=== PATIENT | male | born 1965 | race Caucasian/White ===

== ENCOUNTER 2018-06-01 06:26 | Inpatient (IN) ==
--- NOTE | 2018-06-01 06:48 | ED ---
HPI General Chief Complaint: Chest Pain Stated Complaint: medical Time Seen by Provider: 06/01/18 06:38 Source: patient, RN notes reviewed and old records reviewed Mode of arrival: other Limitations: no limitations History of Present Illness HPI narrative: 52-year-old man, history of sleep apnea and hypertension hyperlipidemia, presents to the emergency department brought over for same day surgery for tachyarrhythmia. Patient denies any history of arrhythmia. He was scheduled for a right total hip arthroplasty with Dr. Chambers this morning. He was feeling generally well. A little bit of back pain. In preop he was noted to have a heart rate elevated EKG showed abnormal tachyarrhythmia. He was sent to the emergency department. Patient denies any chest pain or trouble breathing. He otherwise had been feeling generally well and healthy. No other complaints. Complete Quality Measures for STEMI Alert Patients Related Data Home Medications Medication Instructions Recorded Confirmed hydrocodone-acetaminophen 1 tab PO Q8H PRN 05/18/18 06/01/18 lisinopril-hydrochlorothiazide 2 tab PO DAILY 05/18/18 06/01/18 Allergies Allergy/AdvReac Type Severity Reaction Status Date / Time No Known Allergies Allergy Verified 06/01/18 06:35 Review of Systems ROS Unobtainable All other systems reviewed negative except as stated in HPI ON LICENSE OF [facility] Medical History Medical History Dislocated hip (Acute) Arthritis (Acute) Hyperlipidemia (Acute) Hypertension (Acute) Obstructive sleep apnea on CPAP (Acute) Surgical History Surgical History Hx of umbilical hernia repair (Acute) Family History Family History Father Family history of acute myocardial infarction Social History Social History Substance History: No History of Abuse and Past History (5 years ago, MJ and cocaine and alcohol) Second Hand Smoke Exposure: No Smoking Status: Never smoker How Often Do You Have a Drink Containing Alcohol: 2 to 3 times a week Recent Travel in [place] within the Last 8 Weeks: No Recent Out of Country Travel within the Last 8 Weeks: No Immunization History Tetanus Immunization: >5 Years Hx Influenza Vaccine This Season: No Exam Narrative Exam Narrative: GENERAL: Well-appearing 51-year-old man, no acute distress. SKIN: Focused skin assessment warm/dry. Slightly pale appearing. HEAD: Atraumatic. Normocephalic. EYES: Pupils equal and round. No scleral icterus. No injection or drainage. ENT: No nasal bleeding or discharge. Mucous membranes pink and moist. NECK: Trachea midline. No JVD. CARDIOVASCULAR: Rapid regular heart rate. No murmurs. RESPIRATORY: No accessory muscle use. Clear to auscultation. Breath sounds equal bilaterally. GASTROINTESTINAL: Abdomen soft, non-tender, nondistended. Hepatic and splenic margins not palpable. MUSCULOSKELETAL: No obvious deformities. No clubbing. No cyanosis. No edema. NEUROLOGICAL: Awake and alert. No obvious cranial nerve deficits. Motor grossly within normal limits. Normal speech. PSYCHIATRIC: Appropriate mood and affect; insight and judgment normal. Course Reevaluation(s) Reevaluation #1: Attempted chemical cardioversion. Patient was given 6 mg of adenosine rapid IV push. Is slow the heart rate so that a flutter is clearly visible in the baseline. Patient remained in 2-1 block following attempt. Time: 06:29 Initial Documented Vital Signs Pulse Rate 158 H 06/01/18 06:28 Respiratory Rate 20 06/01/18 06:28 Blood Pressure 120/77 06/01/18 06:28 Pulse Oximetry 99 06/01/18 06:28 Last Documented Vital Signs Temperature 97.8 F 06/01/18 11:04 Pulse Rate 152 H 06/01/18 11:04 Respiratory Rate 18 06/01/18 11:04 Blood Pressure 106/74 06/01/18 11:04 Pulse Oximetry 99 06/01/18 11:04 Medical Decision Making [facility] Narrative Medical decision making narrative: 51-year-old man, new onset atrial flutter. Etiology is unclear. Patient states he does not drink regularly, did drink on Friday, but did not drink to excess. Takes lisinopril for his blood pressure. Is been taking it regularly. Has not abruptly stopped any medications. Patient is not especially symptomatic. Will treat with metoprolol, diltiazem still recorder. Likely admission. BUN and creatinine are little bit elevated, could signify dehydration most likely GI bleed. Patient denies any symptoms suggestive of GI bleed. I assume care of the patient at change of shift. Patient was scheduled to have surgery for his left hip and while it preop, he was noted to be with atrial flutter with RVR. Patient has no chest pain, chest pressure. The patient has been given 3 doses of IV Lopressor however still remains in rapid a flutter. He has been started on an esmolol drip. He has been admitted to the resident service. They will obtain a NIGHAT and the wishes that we can cardiovert him back into a normal sinus rhythm. There are consulting cardiology for the stat NIGHAT. Differential Diagnosis Differential Diagnosis: A flutter with RVR versus atrial fibrillation versus PSVT versus metabolic derangement Lab Data Lab results reviewed: Yes I reviewed the patient's lab results. Lab results narrative: Patient had labs sent on his other accounts, with preop, CBC is unremarkable. No significant anemia. Hemoglobin 11.9. Coags are unremarkable INR 1.1 BMP shows mildly elevated BUN and creatinine 38/1.88 Result diagrams: 06/01/18 10:31 Lab Results 06/01/18 Range/Units 06:30 Troponin I Less than 0.02 L (0.02-0.05) ng/mL Imaging Data Radiologist's impression: Chest X-Ray 06/01/18 06:39 CONCLUSION: No acute cardiopulmonary process. Chest X-Ray 06/01/18 10:19 CONCLUSION: Negative examination. Discharge Plan Discharge Disposition Patient Disposition: 30 Still Patient Discharge Details Diagnosis: Atrial flutter with rapid ventricular response, Degenerative joint disease of left hip, Chronic back pain Physicians Team ED Provider: Royce Subramanian Primary Care Provider: Christ Wilson Attending Provider: Ronak Lutz Other Providers: Daniel Diaz Discharge Interventions Interventions: Vital Signs Last Done: 06/01/18 07:32 Status ED Status: Admitted Patient
[2018-06-01] MEDS: Metoprolol Inj 5 MG/5 ML Vial IV.PUSH PRN ×3 (06:49→07:08)
--- NOTE | 2018-06-01 07:13 | XR ---
EXAM DATE: 06/01/2018 7:00 AM EDT AGE/SEX: 52 years / Male INDICATIONS: Chest pain. CLINICAL DATA: This is the patient's initial encounter. Patient reports that signs and symptoms have been present for 1 day and indicates a pain score of 1/10. MEDICAL/SURGICAL HISTORY: Hypertension. None. COMPARISON: [facility] [place], CHEST 2V PA&LAT, 05/15/2018. . FINDINGS: A single AP view of the chest demonstrates the lungs to be symmetrically aerated without evidence of mass, infiltrate or effusion. The cardiomediastinal contours are unremarkable. Osseous structures a re intact with degenerative changes. CONCLUSION: No acute cardiopulmonary process. Electronically signed by: Adriane Jung MD 06/01/2018 7:12 AM EDT
[2018-06-01] MEDS ORDERED: Esmolol Bolus Inj 100 MG/10 ML Vial IV.PUSH ONE (07:50)
[2018-06-01] MEDS: Esmolol 2,500 mg/250 mL Premix 2,500 MG/250 ML BAG IV.CONT PRN ×6 (08:13→22:50)
[2018-06-01] MEDS ORDERED: Ibuprofen 600 MG Tablet PO ONE (09:33)
[2018-06-01] MEDS ORDERED: MethylPREDNISolone Sod Succinate Inj 125 MG/2 ML Vial IV.PUSH ONE (10:18)
--- NOTE | 2018-06-01 10:18 | P.HPFP ---
History of Present Illness Primary Care Physician: Christ Wilson MD is PCP History of Present Illness: 52-year-old male, past medical history of hypertension, dislocated right hip, chronic back pain, presents from preop for incidentally discovered atrial flutter with RVR and elevated creatinine. The patient came in for surgery today and was told that he had an irregular heart beat. He was told that he cannot have surgery and was taken down to the ER. His preoperative EKG was normal 2 weeks ago (05/15), and he has never been told he has any arrythmias or heart problems. He denies any chest pains or palpitations. He has been SOB going up and down the stairs but he thought it was related to his broken hip. His shortness of breath has been going on for a long time, since he has been deconditioned from the broken hip. He denies any chest pain or palpitations. No new symptoms. 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), Denies chills, Denies fever(s), Denies night sweats Eyes: Denies blurry vision, Denies change in vision Ears, Nose, Mouth, and Throat: Denies abnormal hearing, Denies dizziness, Denies nasal obstruction, Denies pain with swallowing, Denies sinus pain, Denies sinus pressure Cardiovascular: Reports chest pain (last couple years - off and on chest pain, not related to activity), Reports shortness of breath with activity (up stairs with broken hip), Denies chest pain at rest, Denies chest pain with activity, Denies fainting Respiratory: Denies cough Gastrointestinal: Denies abdominal pain, Denies change in stools, Denies incontinent of stools Genitourinary: Denies blood in urine, Denies decreased urination Musculoskeletal: Reports back pain ("back goes out" 2x/ year, locked up this morning), Denies muscle weakness Skin/Breast: Denies bleeding lesions, Denies changing lesions, Denies dry skin Neurologic: Denies abnormal hearing, Denies abnormal movements, Denies headache( s) Psychiatric: Denies confusion, Denies memory loss, Denies mood swings PMFSH - History History Provided By: Patient - Medical History Medical History: Medical History (Last Updated 06/01/18 @ 10:16 by Vianey Escalante MD, R2) Dislocated hip Arthritis Hyperlipidemia Hypertension Obstructive sleep apnea on CPAP - Surgical History Surgical History: Surgical History (Last Reviewed 06/01/18 @ 10:16 by Vianey Escalante MD, R2) Hx of umbilical hernia repair - Family History Family History: Family History (Last Updated 06/01/18 @ 10:17 by Vianey Escalante MD, R2) Father Family history of acute myocardial infarction - Tobacco History Second Hand Smoke Exposure: No Tobacco Use In Past 30 Days: No Smoking Status: Never smoker - Alcohol History How Often Do You Have a Drink Containing Alcohol: 2 to 3 times a week - Substance Use History Substance History: No History of Abuse, Past History (5 years ago, MJ and cocaine and alcohol) - Travel History Recent Travel in the [facility] Within the Last 8 Weeks: No Recent Travel Out of the Country Within the Last 8 Weeks: No - Immunization History Tetanus Immunization: >5 Years Hx Influenza Vaccine This Season: No Medications and Allergies Active Medications: Active Medications Esmolol HCl (Brevibloc 2,500 Mg/Ns 250 Ml Premix) 2,500 mg in 250 mls @ 32.318 mls/hr IV.CONT TITRATE PRN; Protocol PRN Reason: Per Protocol Last Titration: 06/01/18 08:44 Dose: 150 mcg/kg/min, 96.95 mls/hr Sodium Chloride (Ns Flush) 2 ml IV.FLUSH UNSCH PRN PRN Reason: FLUSH AFTER USING IV ACCESS Last Admin: 06/01/18 07:09 Dose: 2 ml Allergies Allergy/AdvReac Type Severity Reaction Status Date / Time No Known Allergies Allergy Verified 06/01/18 06:35 Home Medications Medication Instructions Recorded Confirmed Type hydrocodone-acetaminophen 1 tab PO Q8H PRN 05/18/18 06/01/18 History lisinopril-hydrochlorothiazide 2 tab PO DAILY 05/18/18 06/01/18 History Exam Vital signs: Vital Signs 06/01/18 06:28 06/01/18 06:32 06/01/18 06:43 Temperature 99.2 F Pulse Rate 158 H 152 H Respiratory Rate 20 Blood Pressure 120/77 Pulse Oximetry 99 06/01/18 06:44 06/01/18 06:45 06/01/18 06:58 Temperature Pulse Rate 154 H Respiratory Rate 20 Blood Pressure 120/87 Pulse Oximetry 99 98 99 06/01/18 07:05 06/01/18 07:32 06/01/18 09:00 Temperature 97.8 F 97.8 F 97.8 F Pulse Rate 153 H 151 H 150 H Respiratory Rate 18 18 18 Blood Pressure 116/84 120/85 105/74 Pulse Oximetry 99 100 99 06/01/18 09:40 Temperature 97.8 F Pulse Rate 151 H Respiratory Rate 20 Blood Pressure 102/65 Pulse Oximetry 99 Intake & Output 05/31/18 06/01/18 06/01/18 18:59 06:59 18:59 Weight 107.726 kg - Constitutional no acute distress, average body habitus - Routine Chest/Breast/Axilla Exam Chest wall: Absent: tenderness - Routine Respiratory Exam Present: CTA bilaterally. Absent: accessory muscle use, decreased breath sounds , respiratory distress - Routine Cardiovascular Exam Present: RRR, S1, S2. Absent: murmur - Routine Abdominal Exam Present: soft, normoactive bowel sounds - Routine Extremities Exam Absent: cyanosis, clubbing - Routine Skin Exam Present: intact - Routine Neurological Exam Present: alert, oriented X3 Results - Labs Result diagrams: 06/01/18 12:45 06/01/18 10:31 Abnormal lab results 06/01/18 Range/Units 06:30 Troponin I Less than 0.02 L (0.02-0.05) ng/mL Cardiac Enzymes 06/01/18 Range/Units 06:30 Troponin I Less than 0.02 L (0.02-0.05) ng/mL - Imaging Impressions Chest X-Ray 06/01/18 06:39 CONCLUSION: No acute cardiopulmonary process. Caprini VTE Risk Assessment Caprini VTE Risk Assessment: No/Low Risk (score <= 1) Caprini Risk Assessment Model: Point Value = 1 Point Value = 2 Point Value = 3 Point Value = 5 Age 41-60 Minor surgery BMI > 25 kg/m2 Swollen legs Varicose veins or History of unexplained or recurrent spontaneous Oral contraceptives or hormone replacement Sepsis (< 1 month) Serious lung disease, including pneumonia (< 1 month) Abnormal pulmonary function Acute myocardial infarction Congestive heart failure (< 1 month) History of inflammatory bowel disease Medical patient at bed rest Age 61-74 Arthroscopic surgery Major open surgery (> 45 min) Laparoscopic surgery (> 45 min) Malignancy Confined to bed (> 72 hours) Immobilizing plaster cast Central venous access Age >= 75 History of VTE Family history of VTE Factor V Leiden Prothrombin [id number] Lupus anticoagulant Anticardiolipin antibodies Elevated serum homocysteine Heparin-induced thrombocytopenia Other congenital or acquired thrombophilia Stroke (< 1 month) Elective arthroplasty Hip, pelvis, or leg fracture Acute spinal cord injury (< 1 month) Prophylaxis Regimen: Total Risk Factor Score Risk Level Prophylaxis Regimen 0-1 Low Early ambulation 2 Moderate Order ONE of the following: *Sequential Compression Device (SCD) *Heparin 5000 units SQ BID 3-4 Higher Order ONE of the following medications: *Heparin 5000 units SQ TID *Enoxaparin/Lovenox 40 mg SQ daily (WT < 150 kg, CrCl > 30 mL/min) *Enoxaparin/Lovenox 30 mg SQ daily (WT < 150 kg, CrCl > 10-29 mL/min) *Enoxaparin/Lovenox 30 mg SQ BID (WT < 150 kg, CrCl > 30 mL/min) AND/OR *Sequential Compression Device (SCD) 5 or more Highest Order ONE of the following medications: *Heparin 5000 units SQ TID (Preferred with Epidurals) *Enoxaparin/Lovenox 40 mg SQ daily (WT < 150 kg, CrCl > 30 mL/min) *Enoxaparin/Lovenox 30 mg SQ daily (WT < 150 kg, CrCl > 10-29 mL/min) *Enoxaparin/Lovenox 30 mg SQ BID (WT < 150 kg, CrCl > 30 mL/min) AND *Sequential Compression Device (SCD) Assessment and Plan - Assessment (1) Atrial flutter with rapid ventricular response Code(s): I48.92 - Unspecified atrial flutter Status: Acute Plan: Paroxysmal atrial flutter, new since preoperative EKG 2 months ago. Hemodynamically stable, asymptomatic Continued heart rate at 150 bpm status post Lopressor, esmolol drip, amiodarone bolus and drip Follow-up recommendations per cardiology Continue IV amiodarone and esmolol for now Follow-up echo, will add aspirin if echo is normal (2) Elevated serum creatinine Code(s): R79.89 - Other specified abnormal findings of blood chemistry Status : Acute Plan: Creatinine 1.88 on admission, improved to 1.66 after hydration May be due to dehydration versus reduced perfusion from arrhythmia Avoid NSAIDs, continue with IV hydration Follow-up CMP in a.m. (3) Hypertension Code(s): I10 - Essential (primary) hypertension Status: Acute Plan: Borderline low blood pressures Avoid narcotics for now, caution with antihypertensive agents Follow-up recommendations of cardiology (4) Degenerative joint disease of left hip Code(s): M16.12 - Unilateral primary osteoarthritis, left hip Status: Acute Plan: Was scheduled for surgery with orthopedic surgery today We will have to reevaluate as outpatient (5) Chronic back pain Code(s): M54.9 - Dorsalgia, unspecified; G89.29 - Other chronic pain Status: Acute Plan: Avoiding opiates due to borderline low blood pressures Will add Tylenol IV as needed overnight if any calls for pain (6) Symptoms concerning nutrition, metabolism, and development Code(s): R63.8 - Other symptoms and signs concerning food and fluid intake Status: Acute Plan: Fluids: IV fluids at maintenance due to dehydration, regular p.o. diet Electrolytes: CMP normal, follow-up in a.m. Nutrition: Regular diet (7) DVT prophylaxis Status: Acute Plan: Heparin 5000 units 3 times daily, may need to be anticoagulated long-term due to a flutter, not anticipating cardioversion per cardiology - Assessment and Plan 52-year-old male, past medical history of hypertension, dislocated right hip, chronic back pain, presents from preop for incidentally discovered atrial flutter with RVR and elevated creatinine. Discharge Planning: Discharge pending recommendations of cardiology (4) Degenerative joint disease of left hip Qualifiers: Osteoarthritis type: primary Qualified Code(s): M16.12 - Unilateral primary osteoarthritis, left hip (5) Chronic back pain Qualifiers: Back pain location: low back pain Back pain laterality: unspecified Sciatica presence: unspecified whether sciatica present Qualified Code(s): M54.5 - Low back pain; G89.29 - Other chronic pain
[2018-06-01] MEDS ORDERED: Bisacodyl 10 MG Supp RECTAL PRN (10:27)
[2018-06-01] MEDS ORDERED: Temazepam 15 MG Capsule PO PRN (10:27)
[2018-06-01] MEDS ORDERED: Morphine Inj 4 MG/ML Vial IV.PUSH ONE (10:54)
--- NOTE | 2018-06-01 10:58 | XR ---
EXAM DATE: 06/01/2018 10:45 AM EDT AGE/SEX: 52 years / Male INDICATIONS: Rapid heart rate and shortness of breath when checking in for hip replacement surgery t umu CLINICAL DATA: This is the patient's initial encounter. Patient reports that signs and symptoms have been present for 1 day and indicates a pain score of 0/10. MEDICAL/SURGICAL HISTORY: . low back pain, hip pain None. COMPARISON: [facility] [place], CHEST 1V SINGLE AP, 06/01/2018. . FINDINGS: A single AP view of the chest demonstrates the lungs to be symmetrically aerated without evidence of mass, infiltrate or effusion. The cardiomediastinal contours are unremarkable. Osseous structures a re intact. CONCLUSION: Negative examination. Electronically signed by: Gregory Lee MD 06/01/2018 10:57 AM EDT
[2018-06-01] MEDS ORDERED: Amiodarone Inj 150 MG in Dextrose 5% in Water Inj 97 ML IV.SIG ONE ×4 (11:23→19:58)
[2018-06-01 11:29] LABS: Activated Partial Thrombo Time 26.8 sec (24.3-30.1); INR 1.1 Ratio; Prothrombin Time 10.9 sec (9.8-11.6)
[2018-06-01 11:35] LABS: Albumin 3.8 g/dL (3.4-5.0); Anion Gap 6 meq/L (5-15); Aspartate Aminotransferase 10 U/L (15-37); Blood Urea Nitrogen 33 mg/dL (7-18); Calcium 8.3 mg/dL (8.5-10.1); Carbon Dioxide 26.9 meq/L (21.0-32.0); Chloride 108 meq/L (98-107); Glomerular Filtration Rate 44 mL/min (>89); Glucose,Random 115 mg/dL (74-106); Magnesium 2.3 mg/dL (1.5-2.5); Potassium 4.5 meq/L (3.5-5.1); Sodium 141 meq/L (136-145)
[2018-06-01 11:40] LABS: Alanine Aminotransferase 21 U/L (12-78); Alkaline Phosphatase 68 U/L (45-117); Creatine Kinase 125 U/L (39-308); Total Protein 7.1 g/dL (6.4-8.2)
[2018-06-01 11:52] LABS: Creatine Kinase MB 1.4 ng/mL (0.5-3.6)
[2018-06-01] MEDS: Sod Chloride 0.9% Inj 1,000 ML IV.CONT SCH ×3 (12:34→19:32)
[2018-06-01] MEDS: Heparin - SQ 10,000 UNITS/ML Vial SQ SCH ×2 (12:36→19:32)
[2018-06-01 13:01] LABS: Baso % (Auto) 0.6 % (0.0-2.0); Eos # (Auto) 0.1 th/mm3 (0.0-0.4); Eos % (Auto) 0.7 % (0.0-4.0); Hematocrit 32.5 % (39.0-51.0); Hemoglobin 11.2 gm/dL (13.0-17.0); Lymph # (Auto) 1.7 th/mm3 (1.0-4.8); Lymph % (Auto) 23.2 % (9.0-44.0); Mean Corpuscular HGB Conc 34.5 % (32.0-36.0); Mean Corpuscular Hemoglobin 28.9 pg (27.0-34.0); Mean Corpuscular Volume 83.7 fL (80.0-100.0); Mean Platelet Volume 9.7 fL (7.0-11.0); Mono # (Auto) 0.5 th/mm3 (0.0-0.9); Mono % (Auto) 6.2 % (0.0-8.0); Neut # (Auto) 5.1 th/mm3 (1.8-7.7); Neut % (Auto) 69.3 % (16.0-70.0); Platelet Count 210 th/mm3 (150-450); Red Blood Count 3.88 mil/mm3 (4.50-5.90); Red Cell Distribution Width 14.8 % (11.6-17.2); White Blood Count 7.3 th/mm3 (4.0-11.0)
[2018-06-01 13:30] LABS: Bilirubin,Urine Negative (Negative); Clarity,Urine Clear (Clear); Color,Urine Yellow (Yellw/Straw); Glucose,Urine (UA) 50 mg/dL (Negative); Hyaline Casts,Urine 16 /lpf (0-3); Leukocyte Esterase,Urine Negative (Negative); Nitrite,Urine Negative (Negative); Specific Gravity,Urine 1.016 (1.002-1.035)
--- NOTE | 2018-06-01 16:20 | MB ---
cc: Daniel Diaz MD DATE: 05/25/2018 REASON FOR CONSULTATION: Atrial flutter. HISTORY OF PRESENT ILLNESS: The patient is a 52-year-old white male with a history of recently diagnosed hypertension, history of sleep apnea and hyperlipidemia, who was to undergo right total hip arthroplasty today when preoperative EKG showed atrial flutter. The patient denies palpitations, dizziness, syncope, near-syncope, chest pain, shortness of breath, pedal edema, paroxysmal nocturnal dyspnea. He has had some troubles with his CPAP mask and has been wearing it suboptimally with a loose mask recently. PAST MEDICAL HISTORY: 1. Hypertension. 2. Hyperlipidemia. 3. Sleep apnea. CARDIAC MEDICATIONS AT HOME: Lisinopril HCT unknown dose 2 daily. MEDICATIONS HERE IN THE HOSPITAL: Amiodarone drip, esmolol drip, heparin 5000 units subcutaneously q. 8 hours. ALLERGIES: NO KNOWN DRUG ALLERGIES. FAMILY HISTORY: The patient's father fairly suddenly at age 62 of unclear cause, possibly myocardial infarction. SOCIAL HISTORY: The patient denies any history of alcohol or tobacco abuse. REVIEW OF SYSTEMS: As in the History Of Present Illness, otherwise negative or noncontributory. He also denies headache, abdominal pain, melena, dyspepsia, bright red blood per rectum. PHYSICAL EXAMINATION: VITAL SIGNS: Blood pressure 102/69 with a pulse of 149, respirations 16. GENERAL: He is a well-developed, well-nourished white male, in no acute distress. HEENT/NECK: Jugular venous pressure is normal. Carotid pulses are 2+ bilaterally and without bruits. CHEST: Clear lungs lance. CARDIAC: He has a tachycardic, regular rhythm without S3, S4, or murmur. ABDOMEN: He has a soft, obese, nontender abdomen. Bowel sounds are present. There is no definite hepatosplenomegaly. EXTREMITIES: Reveals no clubbing, cyanosis or edema. EKG shows atrial flutter, 2:1 AV conduction, nonspecific T-wave abnormalities. Chest x-ray shows no acute disease. LABORATORY DATA: WBC 7.3, hemoglobin 11.2, platelets 210. Potassium 4.5, BUN 33, creatinine 1.66. Negative cardiac enzymes. AST 10, ALT 21. IMPRESSION: Paroxysmal atrial flutter in this 52-year-old white male with a history of hypertension, hyperlipidemia, sleep apnea. At this time, he remains in atrial flutter with 2:1 atrioventricular conduction with heart rate of approximately 150 beats per minute. There is no evidence for acute coronary syndrome or congestive heart failure. He is completely asymptomatic with the arrhythmia, the chronicity of which is not clear. He apparently did have a preoperative electrocardiogram maybe 2 months ago which was normal. He remains normotensive. RECOMMENDATIONS: 1. Continue intravenous amiodarone and intravenous esmolol for now. 2. Check 2-D echo to assess his left ventricular function. 3. Providing his left ventricular function is normal, his thromboembolic risk is overall low and recommend daily aspirin. MD MYRIAM Paredes/CESIA , 03:44 PM , 03:54 PM DAVID
--- NOTE | 2018-06-01 21:38 | ECG ---
Date Performed: 06/01/2018 Time Performed: 10:46:41 PTAGE: 52 years EKG: ATRIAL FLUTTER/TACHYCARDIA WITH RAPID VENTRICULAR RESPONSE MODERATE ST DEPRESSION ABNORMAL ECG PREVIOUS TRACING : 06/01/2018 05.45 Since the previous tracing, no significant change noted DOCTOR: Sukumar Nicholson Interpretating Date/Time 06/01/2018 21:36:14
--- NOTE | 2018-06-01 21:54 | ECG ---
Date Performed: 06/01/2018 Time Performed: 05:45:18 PTAGE: 52 years EKG: Atrial flutter with uncontrolled ventricular response with 2:1 A-V block Extensive ST-T rudy nges may be due to myocardial ischemia Abnormal ECG NO PREVIOUS TRACING DOCTOR: Sukumar Nicholson Interpretating Date/Time 06/01/2018 21:53:28
[2018-06-01] MEDS ORDERED: Digoxin Inj 500 MCG/2 ML Ampul IV.PUSH ONE (23:30)
[2018-06-02] MEDS: Esmolol 2,500 mg/250 mL Premix 2,500 MG/250 ML BAG IV.CONT PRN ×7 (03:06→23:05)
[2018-06-02] MEDS: Sod Chloride 0.9% Inj 1,000 ML IV.CONT SCH ×4 (03:06→20:41)
[2018-06-02] MEDS: Heparin - SQ 10,000 UNITS/ML Vial SQ SCH ×2 (04:22→12:32)
[2018-06-02 06:31] LABS: Hematocrit 33.3 % (39.0-51.0); Hemoglobin 11.4 gm/dL (13.0-17.0); Lymph # (Auto) 1.1 th/mm3 (1.0-4.8); Lymph % (Auto) 11.7 % (9.0-44.0); Mean Corpuscular HGB Conc 34.1 % (32.0-36.0); Mean Corpuscular Hemoglobin 28.8 pg (27.0-34.0); Mean Corpuscular Volume 84.4 fL (80.0-100.0); Mean Platelet Volume 9.9 fL (7.0-11.0); Mono # (Auto) 0.5 th/mm3 (0.0-0.9); Mono % (Auto) 5.7 % (0.0-8.0); Neut # (Auto) 7.4 th/mm3 (1.8-7.7); Neut % (Auto) 82.6 % (16.0-70.0); Platelet Count 192 th/mm3 (150-450); Red Blood Count 3.94 mil/mm3 (4.50-5.90); Red Cell Distribution Width 14.9 % (11.6-17.2)
[2018-06-02 06:43] LABS: INR 1.1 Ratio; Prothrombin Time 11.4 sec (9.8-11.6)
[2018-06-02 06:53] LABS: Albumin 3.4 g/dL (3.4-5.0); Anion Gap 7 meq/L (5-15); Aspartate Aminotransferase 10 U/L (15-37); Blood Urea Nitrogen 25 mg/dL (7-18); Calcium 8.4 mg/dL (8.5-10.1); Carbon Dioxide 23.7 meq/L (21.0-32.0); Chloride 109 meq/L (98-107); Glomerular Filtration Rate 50 mL/min (>89); Glucose,Random 153 mg/dL (74-106); Potassium 4.4 meq/L (3.5-5.1); Sodium 140 meq/L (136-145)
[2018-06-02 06:56] LABS: Alanine Aminotransferase 19 U/L (12-78); Alkaline Phosphatase 58 U/L (45-117); Total Protein 6.4 g/dL (6.4-8.2)
--- NOTE | 2018-06-02 07:46 | P.PNCA ---
Subjective Interval history: Denies palpitations, dizziness, CP, dyspnea. Physical Exam Vital signs: Vital Signs 06/01/18 09:00 06/01/18 09:40 06/01/18 10:00 Temperature 97.8 F 97.8 F 97.9 F Pulse Rate 150 H 151 H 148 H Respiratory Rate 18 20 18 Blood Pressure 105/74 102/65 111/68 Pulse Oximetry 99 99 99 06/01/18 10:08 06/01/18 10:19 06/01/18 10:27 Temperature Pulse Rate Respiratory Rate 18 Blood Pressure Pulse Oximetry 99 99 06/01/18 11:04 06/01/18 12:40 06/01/18 13:00 Temperature 97.8 F 97.8 F 97.9 F Pulse Rate 152 H 149 H 150 H Respiratory Rate 18 16 18 Blood Pressure 106/74 102/69 116/83 Pulse Oximetry 99 99 06/01/18 14:00 06/01/18 15:10 06/01/18 16:20 Temperature 97.7 F 97.9 F 97.7 F Pulse Rate 149 H 146 H 142 H Respiratory Rate 17 18 18 Blood Pressure 106/81 95/60 L 99/58 L Pulse Oximetry 99 99 99 06/01/18 16:30 06/01/18 18:00 06/01/18 20:00 Temperature 98.1 F 98.7 F Pulse Rate 144 H 143 H 142 H Respiratory Rate 19 22 Blood Pressure 101/61 128/84 Pulse Oximetry 98 98 06/01/18 20:48 06/01/18 22:00 06/01/18 22:05 Temperature Pulse Rate 142 H Respiratory Rate 24 18 Blood Pressure Pulse Oximetry 06/02/18 00:00 06/02/18 00:31 06/02/18 02:00 Temperature 98.2 F Pulse Rate 122 H 122 H Respiratory Rate 20 Blood Pressure 127/61 Pulse Oximetry 95 98 06/02/18 02:19 06/02/18 04:00 06/02/18 04:21 Temperature 98.7 F Pulse Rate 122 H Respiratory Rate 12 Blood Pressure 113/68 Pulse Oximetry 97 100 99 06/02/18 06:00 Temperature Pulse Rate 138 H Respiratory Rate Blood Pressure Pulse Oximetry Intake & Output 06/01/18 06/02/18 06/02/18 18:59 06:59 18:59 Intake Total 850 / 850 3370 / 3370 Output Total 400 / 400 1600 / 1600 Balance 450 / 450 1770 / 1770 Weight 113 kg Intake: IV 850 / 850 3250 / 3250 Cordarone Inj 450 MG In D5W Inj 250 / 250 241 ML @ 1 MG/MIN 33.33 mls/hr IV.CONT TITRATE PRN Rx#: [id number] Brevibloc 2,500 mg/NS 250 mL 750 / 750 1000 / 1000 Premix 2,500 mg In 250 ml @ 50 MCG/KG/MIN 32.318 mls/hr IV. CONT TITRATE PRN Rx#:[id number] NS Inj 1,000 ML @ 150 mls/hr IV 1999 / 1999 .CONT .Q6H40M YVES Rx#:[id number] Cordarone Inj 150 MG In D5W Inj 100 / 100 97 ML @ 600 mls/hr IV.SIG ONCE ONE Rx#:[id number] Oral 0 / 0 120 / 120 Output: Urine 400 / 400 1600 / 1600 Other: # Voids 1 # Bowel Movements 0 - Constitutional no acute distress - Routine Neck Exam Absent: JVD - Routine Respiratory Exam Present: CTA bilaterally - Routine Cardiovascular Exam Present: S1, S2, tachycardia. Absent: murmur, gallop - Routine Abdominal Exam Present: soft, normoactive bowel sounds. Absent: tenderness, organomegaly - Routine Extremities Exam Absent: cyanosis, clubbing, edema Assessment and Plan - Assessment (1) Paroxysmal atrial flutter Code(s): I48.92 - Unspecified atrial flutter Status: Acute Plan: Remains in atrial flutter, HR's minimally better. Patient completely asymptomatic. REC additional IV dig, IV Amiodarone boluses this morning, if remains in atrial flutter and echo completely normal, to consider cardioversion late today or in am (2) Hypertension Code(s): I10 - Essential (primary) hypertension Status: Chronic Plan: Stable. Normotensive. - Plan Code Status: full code Discussed Condition With: patient (2) Hypertension Qualifiers: Hypertension type: essential hypertension Qualified Code(s): I10 - Essential (primary) hypertension
[2018-06-02] MEDS ORDERED: Digoxin Inj 500 MCG/2 ML Ampul IV.PUSH ONE (09:15)
[2018-06-02] MEDS ORDERED: Amiodarone Inj 150 MG in Dextrose 5% in Water Inj 97 ML IV.SIG ONE ×2 (10:00)
--- NOTE | 2018-06-02 15:04 | P.PNFP ---
Subjective Interval history: Patient seen and examined this morning bedside. Patient denies any current chest pain or difficulty breathing. He continues to have no symptoms from his irregular heart rate. No acute events overnight. No fever/chills. No dizziness. <Vianey Escalante - 06/02/18 15:04> Results - Labs Result diagrams: 06/02/18 05:43 06/02/18 05:43 <Ronak Lutz - 06/03/18 08:30> Abnormal lab results 06/01/18 06/02/18 06/02/18 Range/Units 20:16 05:43 05:43 RBC 3.94 L (4.50-5.90) mil/mm3 Hgb 11.4 L (13.0-17.0) gm/dL Hct 33.3 L (39.0-51.0) % Neut % (Auto) 82.6 H (16.0-70.0) % Chloride (98-107) meq/L BUN (7-18) mg/dL Creatinine (0.60-1.30) mg/dL Estimated GFR (>89) mL/min Random Glucose (74-106) mg/dL Calcium (8.5-10.1) mg/dL AST (15-37) U/L Troponin I Less than 0.02 L (0.02-0.05) ng/mL B-Natriuretic Peptide 214 H (0-100) pg/mL 06/02/18 Range/Units 05:43 RBC (4.50-5.90) mil/mm3 Hgb (13.0-17.0) gm/dL Hct (39.0-51.0) % Neut % (Auto) (16.0-70.0) % Chloride 109 H (98-107) meq/L BUN 25 H (7-18) mg/dL Creatinine 1.47 H (0.60-1.30) mg/dL Estimated GFR 50 L (>89) mL/min Random Glucose 153 H (74-106) mg/dL Calcium 8.4 L (8.5-10.1) mg/dL AST 10 L (15-37) U/L Troponin I (0.02-0.05) ng/mL B-Natriuretic Peptide (0-100) pg/mL Short CBC 06/02/18 Range/Units 05:43 WBC 9.0 (4.0-11.0) th/mm3 Hgb 11.4 L (13.0-17.0) gm/dL Hct 33.3 L (39.0-51.0) % Plt Count 192 (150-450) th/mm3 BMP 06/02/18 05:43 Sodium 140 Potassium 4.4 Chloride 109 H Carbon Dioxide 23.7 BUN 25 H Creatinine 1.47 H Calcium 8.4 L Cardiac Enzymes 06/01/18 Range/Units 20:16 Troponin I Less than 0.02 L (0.02-0.05) ng/mL Liver Function 06/02/18 Range/Units 05:43 Total Bilirubin 0.3 (0.2-1.0) mg/dL AST 10 L (15-37) U/L ALT 19 (12-78) U/L Alkaline Phosphatase 58 (45-117) U/L Albumin 3.4 (3.4-5.0) g/dL <Vianey Escalante - 06/02/18 15:04> Physical Exam Vital signs: Vital Signs 06/02/18 10:00 06/02/18 12:00 06/02/18 12:32 Temperature 98.5 F Pulse Rate 139 H 138 H Respiratory Rate 20 20 Blood Pressure 147/70 H Pulse Oximetry 97 06/02/18 14:00 06/02/18 14:24 06/02/18 16:00 Temperature 98.5 F Pulse Rate 140 H 141 H Respiratory Rate 16 20 Blood Pressure 132/82 Pulse Oximetry 98 06/02/18 18:00 06/02/18 20:00 06/02/18 22:00 Temperature 98.6 F Pulse Rate 141 H 140 H 142 H Respiratory Rate 27 H Blood Pressure 131/65 Pulse Oximetry 96 06/02/18 23:05 06/03/18 00:00 06/03/18 02:00 Temperature 98.8 F Pulse Rate 140 H 112 H Respiratory Rate 14 Blood Pressure 126/61 Pulse Oximetry 99 97 06/03/18 04:00 06/03/18 04:34 06/03/18 06:00 Temperature 97.8 F Pulse Rate 140 H 124 H Respiratory Rate 18 Blood Pressure 146/65 H Pulse Oximetry 97 98 Intake & Output 06/02/18 06/03/18 06/03/18 18:59 06:59 18:59 Intake Total 2510 / 2510 1275 / 1275 Output Total 1050 / 1050 1075 / 1075 Balance 1460 / 1460 200 / 200 Weight 117.3 kg Intake: IV 1950 / 1950 1225 / 1225 Cordarone Inj 450 MG In D5W Inj 240 / 240 241 ML @ 1 MG/MIN 33.33 mls/hr IV.CONT TITRATE PRN Rx#: [id number] Brevibloc 2,500 mg/NS 250 mL 750 / 750 985 / 985 Premix 2,500 mg In 250 ml @ 50 MCG/KG/MIN 32.318 mls/hr IV. CONT TITRATE PRN Rx#:[id number] NS Inj 1,000 ML @ 150 mls/hr IV 1000 / 1000 .CONT .Q6H40M YVES Rx#:[id number] Cordarone Inj 150 MG In D5W Inj 100 / 100 97 ML @ 600 mls/hr IV.SIG ONCE ONE Rx#:[id number] Oral 560 / 560 50 / 50 Output: Urine 1050 / 1050 1075 / 1075 Other: # Bowel Movements 0 <Ronak Lutz - 06/03/18 08:30> Vital Signs 06/01/18 15:10 06/01/18 16:20 06/01/18 16:30 Temperature 97.9 F 97.7 F 98.1 F Pulse Rate 146 H 142 H 144 H Respiratory Rate 18 18 19 Blood Pressure 95/60 L 99/58 L 101/61 Pulse Oximetry 99 99 98 06/01/18 18:00 06/01/18 20:00 06/01/18 20:48 Temperature 98.7 F Pulse Rate 143 H 142 H Respiratory Rate 22 24 Blood Pressure 128/84 Pulse Oximetry 98 06/01/18 22:00 06/01/18 22:05 06/02/18 00:00 Temperature 98.2 F Pulse Rate 142 H 122 H Respiratory Rate 18 20 Blood Pressure 127/61 Pulse Oximetry 95 06/02/18 00:31 06/02/18 02:00 06/02/18 02:19 Temperature Pulse Rate 122 H Respiratory Rate Blood Pressure Pulse Oximetry 98 97 06/02/18 04:00 06/02/18 04:21 06/02/18 06:00 Temperature 98.7 F Pulse Rate 122 H 138 H Respiratory Rate 12 Blood Pressure 113/68 Pulse Oximetry 100 99 06/02/18 08:00 06/02/18 10:00 06/02/18 12:00 Temperature 98.7 F 98.5 F Pulse Rate 138 H 139 H 138 H Respiratory Rate 18 20 Blood Pressure 118/70 147/70 H Pulse Oximetry 97 97 06/02/18 12:32 06/02/18 14:00 06/02/18 14:24 Temperature Pulse Rate 140 H Respiratory Rate 20 16 Blood Pressure Pulse Oximetry Intake & Output 06/01/18 06/02/18 06/02/18 18:59 06:59 18:59 Intake Total 850 / 850 3620 / 3620 1949 / 1949 Output Total 400 / 400 1600 / 1600 325 / 325 Balance 450 / 450 2019 / 2019 1625 / 1625 Weight 113 kg Intake: IV 850 / 850 3500 / 3500 1949 / 1950 Cordarone Inj 450 MG In D5W Inj 500 / 500 241 ML @ 1 MG/MIN 33.33 mls/hr IV.CONT TITRATE PRN Rx#: [id number] Brevibloc 2,500 mg/NS 250 mL 750 / 750 1000 / 1000 750 / 750 Premix 2,500 mg In 250 ml @ 50 MCG/KG/MIN 32.318 mls/hr IV. CONT TITRATE PRN Rx#:[id number] NS Inj 1,000 ML @ 150 mls/hr IV 1999 / 1999 1000 / 1000 .CONT .Q6H40M YVES Rx#:[id number] Cordarone Inj 150 MG In D5W Inj 100 / 100 100 / 100 97 ML @ 600 mls/hr IV.SIG ONCE ONE Rx#:[id number] Oral 0 / 0 120 / 120 Output: Urine 400 / 400 1600 / 1600 325 / 325 Other: # Voids 1 # Bowel Movements 0 <Mcinnes,Vianey - 06/02/18 15:04> - Constitutional no acute distress <Mcinnes,Vianey - 06/02/18 15:04> - Routine Respiratory Exam Present: CTA bilaterally. Absent: accessory muscle use, decreased breath sounds <Mcinnes,Vianey - 06/02/18 15:04> - Routine Cardiovascular Exam Present: S1, S2, irregularly irregular <Mcinnes,Vianey - 06/02/18 15:04> - Routine Abdominal Exam Present: soft, normoactive bowel sounds. Absent: tenderness <Mcinnes,Vianey - 06/02/18 15:04> - Routine Extremities Exam Absent: cyanosis, clubbing, edema <Vianey Escalante - 06/02/18 15:04> - Routine Neurological Exam Present: alert, oriented X3 <Vianey Escalante - 06/02/18 15:04> Assessment and Plan - Assessment (1) Atrial flutter with rapid ventricular response Code(s): I48.92 - Unspecified atrial flutter Status: Acute (2) Elevated serum creatinine Code(s): R79.89 - Other specified abnormal findings of blood chemistry Status : Acute (3) Hypertension Code(s): I10 - Essential (primary) hypertension Status: Chronic (4) Degenerative joint disease of left hip Code(s): M16.12 - Unilateral primary osteoarthritis, left hip Status: Acute (5) Chronic back pain Code(s): M54.9 - Dorsalgia, unspecified; G89.29 - Other chronic pain Status: Acute (6) Symptoms concerning nutrition, metabolism, and development Code(s): R63.8 - Other symptoms and signs concerning food and fluid intake Status: Acute (7) DVT prophylaxis Status: Acute <Ronak Lutz - 06/03/18 08:30> (1) Atrial flutter with rapid ventricular response Code(s): I48.92 - Unspecified atrial flutter Status: Acute Plan: Paroxysmal atrial flutter, new since preoperative EKG 2 months ago. Hemodynamically stable, asymptomatic Heart rates have minimally improved over the last 24 hours, cardiology following ; added additional IV digoxin, IV amiodarone boluses this morning, will consider cardioversion later today or tomorrow Follow-up recommendations per cardiology Continue IV amiodarone and esmolol for now Follow-up echo, cardiology added aspirin (2) Elevated serum creatinine Code(s): R79.89 - Other specified abnormal findings of blood chemistry Status : Acute Plan: Creatinine 1.88 on admission, improved to 1.47 today May be due to dehydration versus reduced perfusion from arrhythmia Avoid NSAIDs, continue with IV hydration Follow-up CMP in a.m. (3) Hypertension Code(s): I10 - Essential (primary) hypertension Status: Chronic Plan: Borderline low blood pressures since admission, blood pressure today 147/70 Continue home narcotics for pain management, caution with antihypertensive agents Follow-up recommendations of cardiology (4) Degenerative joint disease of left hip Code(s): M16.12 - Unilateral primary osteoarthritis, left hip Status: Acute Plan: Was scheduled for surgery with orthopedic surgery on 06/01 We will have to reevaluate as outpatient (5) Chronic back pain Code(s): M54.9 - Dorsalgia, unspecified; G89.29 - Other chronic pain Status: Acute Plan: Continue home [place] 10 every 8 hours as needed Will add Tylenol IV as needed overnight if any calls for pain (6) Symptoms concerning nutrition, metabolism, and development Code(s): R63.8 - Other symptoms and signs concerning food and fluid intake Status: Acute Plan: Fluids: IV fluids at maintenance due to dehydration, regular p.o. diet Electrolytes: CMP normal, follow-up in a.m. Nutrition: Regular diet (7) DVT prophylaxis Status: Acute Plan: Heparin 5000 units 3 times daily, may need to be anticoagulated long-term due to a flutter, not anticipating cardioversion per cardiology <Vianey Escalante - 06/02/18 14:57> - Assessment and Plan 52-year-old male, past medical history of hypertension, dislocated right hip, chronic back pain, presents from preop for incidentally discovered atrial flutter with RVR and elevated creatinine. <Vianey Escalante - 06/02/18 15:04> Discharge Planning: Discharge pending recommendations of cardiology, either cardioversion or discharge on anticoagulation and follow-up as outpatient <Vianey Escalante - 06/02/18 15:04> - Attending Attestation The exam, history, and the medical decision-making described in the above note were completed with the assistance of the resident physician. I reviewed and agree with the findings presented. I attest that I had a [id number] encounter with the patient on the same day, and personally performed and documented my assessment and findings in the medical record. Tiesha STEVENS <Ronak Lutz - 06/03/18 08:30> <Vianey Escalante - Last Filed: 06/02/18 14:57> (3) Hypertension Qualifiers: Hypertension type: essential hypertension Qualified Code(s): I10 - Essential (primary) hypertension (4) Degenerative joint disease of left hip Qualifiers: Osteoarthritis type: primary Qualified Code(s): M16.12 - Unilateral primary osteoarthritis, left hip (5) Chronic back pain Qualifiers: Back pain location: low back pain Back pain laterality: unspecified Sciatica presence: unspecified whether sciatica present Qualified Code(s): M54.5 - Low back pain; G89.29 - Other chronic pain <NeldaRonak - Last Filed: 06/03/18 08:30> (3) Hypertension Qualifiers: Hypertension type: essential hypertension Qualified Code(s): I10 - Essential (primary) hypertension (4) Degenerative joint disease of left hip Qualifiers: Osteoarthritis type: primary Qualified Code(s): M16.12 - Unilateral primary osteoarthritis, left hip (5) Chronic back pain Qualifiers: Back pain location: low back pain Back pain laterality: unspecified Sciatica presence: unspecified whether sciatica present Qualified Code(s): M54.5 - Low back pain; G89.29 - Other chronic pain <Vianey Escalante - Last Filed: 06/02/18 14:57> (3) Hypertension Qualifiers: Hypertension type: essential hypertension Qualified Code(s): I10 - Essential (primary) hypertension (4) Degenerative joint disease of left hip Qualifiers: Osteoarthritis type: primary Qualified Code(s): M16.12 - Unilateral primary osteoarthritis, left hip (5) Chronic back pain Qualifiers: Back pain location: low back pain Back pain laterality: unspecified Sciatica presence: unspecified whether sciatica present Qualified Code(s): M54.5 - Low back pain; G89.29 - Other chronic pain <Ronak Lutz - Last Filed: 06/03/18 08:30> (3) Hypertension Qualifiers: Hypertension type: essential hypertension Qualified Code(s): I10 - Essential (primary) hypertension (4) Degenerative joint disease of left hip Qualifiers: Osteoarthritis type: primary Qualified Code(s): M16.12 - Unilateral primary osteoarthritis, left hip (5) Chronic back pain Qualifiers: Back pain location: low back pain Back pain laterality: unspecified Sciatica presence: unspecified whether sciatica present Qualified Code(s): M54.5 - Low back pain; G89.29 - Other chronic pain
--- NOTE | 2018-06-02 15:35 | ECHRPT ---
Indication: ATRIAL FIB CONCLUSIONS The left ventricular systolic function is moderately reduced with an estimated ejection fraction in the range of 35-40%. Normal left ventricular size. Wall thickness is normal. No regional wall motion abnormalities are present. BP: / HR: Rhythm: Atrial fibrillation MEASUREMENTS (Male / Female) Normal Values Technical Quality:Technically difficult study 2D ECHO LV Ejection Fraction MOD 4C 32.4 % LV Ejection Fraction 4C AL 35.1 % M-MODE LV Diastolic Diameter MM 6.2 cm 4.2 - 5.9 / 3.9 - 5.3 cm LV Systolic Diameter MM 5.6 cm LV Ejection Fraction MM Teich 22.1 % IVS Diastolic Thickness MM 1.1 cm 0.6 - 1.0 / 0.6 - 0.9 cm LVPW Diastolic Thickness MM 1.0 cm 0.6 - 1.0 / 0.6 - 0.9 cm LV Relative Wall Thickness MM 0.3 0.24 - 0.42 / 0.22 - 0.42 DOPPLER AV Peak Velocity 100.0 cm/s AV Peak Gradient 4.0 mmHg LVOT Peak Velocity 84.4 cm/s LVOT Peak Gradient 2.8 mmHg MV Area PHT 6.1 cm LV E' Lateral Velocity 16.7 cm/s LV E' Septal Velocity 3.5 cm/s FINDINGS LEFT VENTRICLE The left ventricular systolic function is moderately reduced with an estimated ejection fraction in the range of 35-40%. Normal left ventricular size. Wall thickness is normal. No regional wall motion abnormalities are present. Deshawn Moses MD, FACC (Electronically Signed) Final Date:02 June 2018 15:34
[2018-06-02] MEDS: dilTIAZem 60 MG Tablet PO SCH (20:40)
--- NOTE | 2018-06-03 00:29 | MB ---
cc: Bertin Jackson MD DATE: 06/02/2018 REASON FOR CONSULTATION: Atrial flutter, unable to control with medication. HISTORY OF PRESENT ILLNESS: Mr. Garces is a 52-year-old gentleman, morbidly obese, with high blood pressure, hyperlipidemia, sleep apnea, who was admitted due to a total hip arthroplasty. During the hospitalization, he developed atrial flutter with fast ventricular response. He is on multiple medications, heart rate very difficult to control. I was consulted for evaluation and management. The chart was reviewed. The patient was evaluated. ALLERGIES: NONE. SOCIAL HISTORY: The patient denies smoking and drinking. FAMILY HISTORY: Noncontributory to his current medical condition. MEDICATIONS. He is on Esmolol drip. He is on amiodarone. He is on Eliquis, and Cardizem p.o. was added today. REVIEW OF SYSTEMS: Refers shortness of breath and tiredness, but no chest pain, no chest discomfort. PHYSICAL EXAMINATION: GENERAL: Alert, fully oriented. VITAL SIGNS: His blood pressure is 131/65, pulse 140, respiratory rate 20. LUNGS: Ventilated. CARDIOVASCULAR: S1, S2, tachycardic. ABDOMEN: Soft, obese. No masses. EXTREMITIES: No edema. ELECTROCARDIOGRAM: Atrial flutter with fast ventricular response. ASSESSMENT AND RECOMMENDATIONS: Mr. Garces has atrial flutter. Heart rate very difficult to control. He is on multiple medications; he is on esmolol and amiodarone. I did add the Cardizem p.o. today. This gentleman most likely will need ablation. Eliquis will be held. The risks, the nature and the benefits of the procedure were clearly stated to him. Risks include pneumothorax, cardiac perforation, stroke and even . The patient understands and agreed to proceed. The procedure will be performed in the morning. MD JANI Parnell/ANIKA , 11:10 PM , 11:18 PM
[2018-06-03] MEDS: Esmolol 2,500 mg/250 mL Premix 2,500 MG/250 ML BAG IV.CONT PRN ×11 (00:55→22:40)
[2018-06-03] MEDS: dilTIAZem 60 MG Tablet PO SCH ×4 (01:06→20:35)
[2018-06-03] MEDS: Lisinopril 10 MG Tablet PO SCH (08:26)
--- NOTE | 2018-06-03 10:44 | P.PNFP ---
Subjective Interval history: Patient seen and examined this morning bedside. Patient was given food before 9 AM, and is to be n.p.o. after. He is nervous about his procedure today has been a little nauseous with his nervousness. No vomiting. He would like the nurses assistance to get up and move around since he has been stuck in bed for a couple of days. He continues to feel like his back is locked up and he would like a sponge bath. No acute events overnight. No chest pain or shortness of breath. No palpitations. Results - Labs Result diagrams: 06/02/18 05:43 06/02/18 05:43 Physical Exam Vital signs: Vital Signs 06/02/18 12:00 06/02/18 12:32 06/02/18 14:00 Temperature 98.5 F Pulse Rate 138 H 140 H Respiratory Rate 20 20 Blood Pressure 147/70 H Pulse Oximetry 97 06/02/18 14:24 06/02/18 16:00 06/02/18 18:00 Temperature 98.5 F Pulse Rate 141 H 141 H Respiratory Rate 16 20 Blood Pressure 132/82 Pulse Oximetry 98 06/02/18 20:00 06/02/18 22:00 06/02/18 23:05 Temperature 98.6 F Pulse Rate 140 H 142 H Respiratory Rate 27 H Blood Pressure 131/65 Pulse Oximetry 96 99 06/03/18 00:00 06/03/18 02:00 06/03/18 04:00 Temperature 98.8 F 97.8 F Pulse Rate 140 H 112 H 140 H Respiratory Rate 14 18 Blood Pressure 126/61 146/65 H Pulse Oximetry 97 97 06/03/18 04:34 06/03/18 06:00 Temperature Pulse Rate 124 H Respiratory Rate Blood Pressure Pulse Oximetry 98 Intake & Output 06/02/18 06/03/18 06/03/18 18:59 06:59 18:59 Intake Total 2510 / 2510 1275 / 1275 Output Total 1050 / 1050 1075 / 1075 Balance 1460 / 1460 200 / 200 Weight 117.3 kg Intake: IV 1949 / 1949 1225 / 1225 Cordarone Inj 450 MG In D5W Inj 240 / 240 241 ML @ 1 MG/MIN 33.33 mls/hr IV.CONT TITRATE PRN Rx#: [id number] Brevibloc 2,500 mg/NS 250 mL 750 / 750 985 / 985 Premix 2,500 mg In 250 ml @ 50 MCG/KG/MIN 32.318 mls/hr IV. CONT TITRATE PRN Rx#:[id number] NS Inj 1,000 ML @ 150 mls/hr IV 1000 / 1000 .CONT .Q6H40M YVES Rx#:[id number] Cordarone Inj 150 MG In D5W Inj 100 / 100 97 ML @ 600 mls/hr IV.SIG ONCE ONE Rx#:[id number] Oral 560 / 560 50 / 50 Output: Urine 1050 / 1050 1075 / 1075 Other: # Bowel Movements 0 - Constitutional no acute distress - Routine Cardiovascular Exam Present: RRR, S1, S2, tachycardia. Absent: murmur - Routine Abdominal Exam Present: soft, normoactive bowel sounds - Routine Skin Exam Absent: erythema - Routine Neurological Exam Present: alert, oriented X3 Assessment and Plan - Assessment (1) Atrial flutter with rapid ventricular response Code(s): I48.92 - Unspecified atrial flutter Status: Acute Plan: Paroxysmal atrial flutter, new since preoperative EKG 2 months ago. Hemodynamically stable, asymptomatic Heart rates have minimally improved over the last 24 hours, cardiology following and Dr. Jackson following; added additional IV digoxin, IV amiodarone boluses yesterday and diltiazem p.o. scheduled last night, with continued a flutter tachycardia, plans for doing ablation this evening Follow-up recommendations per cardiology Continue IV amiodarone and esmolol for now, continue aspirin and Eliquis per cardiology Echocardiogram: Left ventricular function moderately reduced with EF 35-40% (2) CHF (congestive heart failure) Code(s): I50.9 - Heart failure, unspecified Status: Acute Plan: CHF per echocardiogram, patient currently asymptomatic Echocardiogram: Left ventricular function moderately reduced with EF 35-40% BNP on admission 214 (3) Elevated serum creatinine Code(s): R79.89 - Other specified abnormal findings of blood chemistry Status : Acute Plan: Creatinine 1.88 on admission, improved to 1.47 yesterday, follow-up a.m. labs today May be due to dehydration versus reduced perfusion from arrhythmia Avoid NSAIDs, continue with IV hydration Follow-up CMP in a.m. (4) Hypertension Code(s): I10 - Essential (primary) hypertension Status: Chronic Plan: Normotensive, previously borderline hypotensive Continue home narcotics for pain management, caution with antihypertensive agents Follow-up recommendations of cardiology, continue NURIS inhibitor and scheduled diltiazem (5) Degenerative joint disease of left hip Code(s): M16.12 - Unilateral primary osteoarthritis, left hip Status: Acute Plan: Was scheduled for surgery with orthopedic surgery on 06/01 We will have to reevaluate as outpatient (6) Chronic back pain Code(s): M54.9 - Dorsalgia, unspecified; G89.29 - Other chronic pain Status: Acute Plan: Continue home [place] 10 every 8 hours as needed Will add Tylenol IV as needed overnight if any calls for pain Continue to encourage ambulation with assistance (7) Symptoms concerning nutrition, metabolism, and development Code(s): R63.8 - Other symptoms and signs concerning food and fluid intake Status: Acute Plan: Fluids: N.p.o. after breakfast in anticipation of ablation this evening Electrolytes: CMP normal, follow-up today's labs Nutrition: N.p.o. (8) DVT prophylaxis Status: Acute Plan: On 06/02 cardiology restarted Jackie Lopez - Assessment and Plan 52-year-old male, past medical history of hypertension, dislocated right hip, chronic back pain, presents from preop for incidentally discovered atrial flutter with RVR and elevated creatinine. Discharge Planning: Discharge pending recommendations of cardiology, and follow-up status post ablation this evening (4) Hypertension Qualifiers: Hypertension type: essential hypertension Qualified Code(s): I10 - Essential (primary) hypertension (5) Degenerative joint disease of left hip Qualifiers: Osteoarthritis type: primary Qualified Code(s): M16.12 - Unilateral primary osteoarthritis, left hip (6) Chronic back pain Qualifiers: Back pain location: low back pain Back pain laterality: unspecified Sciatica presence: unspecified whether sciatica present Qualified Code(s): M54.5 - Low back pain; G89.29 - Other chronic pain
--- NOTE | 2018-06-03 11:33 | P.PNCA ---
Subjective Interval history: Denies palpitations, dizziness, CP, SOB. Physical Exam Vital signs: Vital Signs 06/02/18 12:00 06/02/18 12:32 06/02/18 14:00 Temperature 98.5 F Pulse Rate 138 H 140 H Respiratory Rate 20 20 Blood Pressure 147/70 H Pulse Oximetry 97 06/02/18 14:24 06/02/18 16:00 06/02/18 18:00 Temperature 98.5 F Pulse Rate 141 H 141 H Respiratory Rate 16 20 Blood Pressure 132/82 Pulse Oximetry 98 06/02/18 20:00 06/02/18 22:00 06/02/18 23:05 Temperature 98.6 F Pulse Rate 140 H 142 H Respiratory Rate 27 H Blood Pressure 131/65 Pulse Oximetry 96 99 06/03/18 00:00 06/03/18 02:00 06/03/18 04:00 Temperature 98.8 F 97.8 F Pulse Rate 140 H 112 H 140 H Respiratory Rate 14 18 Blood Pressure 126/61 146/65 H Pulse Oximetry 97 97 06/03/18 04:34 06/03/18 06:00 Temperature Pulse Rate 124 H Respiratory Rate Blood Pressure Pulse Oximetry 98 Intake & Output 06/02/18 06/03/18 06/03/18 18:59 06:59 18:59 Intake Total 2510 / 2510 1275 / 1275 500 / 500 Output Total 1050 / 1050 1075 / 1075 Balance 1460 / 1460 200 / 200 500 / 500 Weight 117.3 kg Intake: IV 1950 / 1950 1225 / 1225 500 / 500 Cordarone Inj 450 MG In D5W Inj 240 / 240 241 ML @ 1 MG/MIN 33.33 mls/hr IV.CONT TITRATE PRN Rx#: [id number] Brevibloc 2,500 mg/NS 250 mL 750 / 750 985 / 985 500 / 500 Premix 2,500 mg In 250 ml @ 50 MCG/KG/MIN 32.318 mls/hr IV. CONT TITRATE PRN Rx#:[id number] NS Inj 1,000 ML @ 150 mls/hr IV 1000 / 1000 .CONT .Q6H40M YVES Rx#:[id number] Cordarone Inj 150 MG In D5W Inj 100 / 100 97 ML @ 600 mls/hr IV.SIG ONCE ONE Rx#:[id number] Oral 560 / 560 50 / 50 Output: Urine 1050 / 1050 1075 / 1075 Other: # Bowel Movements 0 - Constitutional no acute distress - Routine Neck Exam Absent: JVD - Routine Respiratory Exam Present: CTA bilaterally - Routine Cardiovascular Exam Present: S1, S2, tachycardia. Absent: murmur, gallop - Routine Abdominal Exam Present: soft, normoactive bowel sounds. Absent: tenderness Assessment and Plan - Assessment (1) Paroxysmal atrial flutter Code(s): I48.92 - Unspecified atrial flutter Status: Acute Plan: Remains in atrial flutter, HR's some better. Patient completely asymptomatic. Dr. Jackson's input noted, greatly appreciated. REC await ablation; will leave rest of cardiac care to Dr. Jackson (2) Hypertension Code(s): I10 - Essential (primary) hypertension Status: Chronic Plan: Stable. Mostly normotensive. - Plan Code Status: full code Discussed Condition With: patient (2) Hypertension Qualifiers: Hypertension type: essential hypertension Qualified Code(s): I10 - Essential (primary) hypertension
[2018-06-03 12:38] LABS: Baso % (Auto) 0.2 % (0.0-2.0); Eos % (Auto) 0.2 % (0.0-4.0); Hemoglobin 11.1 gm/dL (13.0-17.0); Lymph # (Auto) 1.1 th/mm3 (1.0-4.8); Lymph % (Auto) 10.7 % (9.0-44.0); Mean Corpuscular HGB Conc 34.7 % (32.0-36.0); Mean Corpuscular Hemoglobin 29.3 pg (27.0-34.0); Mean Corpuscular Volume 84.5 fL (80.0-100.0); Mean Platelet Volume 9.4 fL (7.0-11.0); Mono # (Auto) 0.7 th/mm3 (0.0-0.9); Mono % (Auto) 6.9 % (0.0-8.0); Neut # (Auto) 8.3 th/mm3 (1.8-7.7); Platelet Count 185 th/mm3 (150-450); Red Blood Count 3.79 mil/mm3 (4.50-5.90); Red Cell Distribution Width 14.8 % (11.6-17.2); White Blood Count 10.2 th/mm3 (4.0-11.0)
[2018-06-03 12:45] LABS: INR 1.1 Ratio; Prothrombin Time 11.1 sec (9.8-11.6)
[2018-06-03 12:55] LABS: Alanine Aminotransferase 18 U/L (12-78); Albumin 3.3 g/dL (3.4-5.0); Anion Gap 9 meq/L (5-15); Aspartate Aminotransferase 9 U/L (15-37); Blood Urea Nitrogen 20 mg/dL (7-18); Calcium 8.3 mg/dL (8.5-10.1); Carbon Dioxide 23.4 meq/L (21.0-32.0); Chloride 107 meq/L (98-107); Glomerular Filtration Rate 57 mL/min (>89); Glucose,Random 110 mg/dL (74-106); Potassium 4.3 meq/L (3.5-5.1); Sodium 139 meq/L (136-145)
[2018-06-03 12:59] LABS: Alkaline Phosphatase 58 U/L (45-117); Total Protein 6.3 g/dL (6.4-8.2)
[2018-06-03] MEDS: Sod Chloride 0.9% Inj 1,000 ML IV.CONT SCH (21:55)
--- NOTE | 2018-06-03 23:25 | P.PN ---
Subjective Interval history: Tired Physical Exam Vital signs: Vital Signs 06/03/18 00:00 06/03/18 02:00 06/03/18 04:00 Temperature 98.8 F 97.8 F Pulse Rate 140 H 112 H 140 H Respiratory Rate 14 18 Blood Pressure 126/61 146/65 H Pulse Oximetry 97 97 06/03/18 04:34 06/03/18 06:00 06/03/18 08:00 Temperature 98.2 F Pulse Rate 124 H 140 H Respiratory Rate 18 Blood Pressure 130/60 Pulse Oximetry 98 95 06/03/18 10:00 06/03/18 12:00 06/03/18 14:00 Temperature 98.2 F Pulse Rate 88 98 H 98 H Respiratory Rate 18 Blood Pressure 137/69 Pulse Oximetry 96 06/03/18 16:00 06/03/18 18:00 06/03/18 20:00 Temperature 98.5 F 98.1 F Pulse Rate 108 H 107 H 145 H Respiratory Rate 21 18 Blood Pressure 139/63 118/82 Pulse Oximetry 93 L 96 06/03/18 22:00 Temperature Pulse Rate 145 H Respiratory Rate Blood Pressure Pulse Oximetry Intake & Output 06/03/18 06/03/18 06/04/18 06:59 18:59 06:59 Intake Total 1275 / 1275 1860 / 1860 500 / 500 Output Total 1075 / 1075 1000 / 1000 Balance 200 / 200 860 / 860 500 / 500 Weight 117.3 kg Intake: IV 1225 / 1225 1750 / 1750 500 / 500 Cordarone Inj 450 MG In D5W Inj 240 / 240 250 / 250 241 ML @ 1 MG/MIN 33.33 mls/hr IV.CONT TITRATE PRN Rx#: [id number] Brevibloc 2,500 mg/NS 250 mL 985 / 985 1500 / 1500 500 / 500 Premix 2,500 mg In 250 ml @ 50 MCG/KG/MIN 32.318 mls/hr IV. CONT TITRATE PRN Rx#:[id number] Oral 50 / 50 110 / 110 Output: Urine 1075 / 1075 1000 / 1000 Other: # Bowel Movements 0 0 - Constitutional moderate distress - Routine HEENT Exam Head: Present: normocephalic Eye: Present: PERRL ENT: Present: mucous membranes moist - Routine Cardiovascular Exam Present: tachycardia, irregularly irregular - Routine Neurological Exam Present: alert, oriented X3 Results - Labs CBC & Chem 7: 06/03/18 12:00 06/03/18 12:00 Laboratory Results - last 24 hr 06/03/18 06/03/18 06/03/18 12:00 12:00 12:00 WBC 10.2 RBC 3.79 L Hgb 11.1 L Hct 32.0 L MCV 84.5 MCH 29.3 MCHC 34.7 RDW 14.8 Plt Count 185 MPV 9.4 Neut % (Auto) 82.0 H Lymph % (Auto) 10.7 [place] % (Auto) 6.9 Eos % (Auto) 0.2 Baso % (Auto) 0.2 Neut # (Auto) 8.3 H Lymph # (Auto) 1.1 [place] # (Auto) 0.7 Eos # (Auto) 0.0 Baso # (Auto) 0.0 WBC Differential . Differential Comment Auto diff final PT 11.1 INR 1.1 Sodium 139 Potassium 4.3 Chloride 107 Carbon Dioxide 23.4 Anion Gap 9 BUN 20 H Creatinine 1.32 H Estimated GFR 57 L Random Glucose 110 H Calcium 8.3 L Total Bilirubin 0.3 AST 9 L ALT 18 Alkaline Phosphatase 58 Total Protein 6.3 L Albumin 3.3 L Assessment and Plan - Assessment (1) Paroxysmal atrial flutter Code(s): I48.92 - Unspecified atrial flutter Status: Acute Plan: In atrial flutter Ablation was scheduled today. Was cancelled because patient was still on eliquis Rescheduled for tomorrow Case discussed with him and his Procedure in AM (2) Hypertension Code(s): I10 - Essential (primary) hypertension Status: Chronic Plan: SBP 118 (2) Hypertension Qualifiers: Hypertension type: essential hypertension Qualified Code(s): I10 - Essential (primary) hypertension
[2018-06-04] MEDS: Esmolol 2,500 mg/250 mL Premix 2,500 MG/250 ML BAG IV.CONT PRN ×4 (00:46→06:12)
[2018-06-04] MEDS: dilTIAZem 60 MG Tablet PO SCH ×2 (01:24→15:12)
[2018-06-04 02:05] LABS: Calcium 8.3 mg/dL (8.5-10.1); Potassium 4.1 meq/L (3.5-5.1)
[2018-06-04 02:14] LABS: Baso % (Auto) 0.2 % (0.0-2.0); Eos % (Auto) 0.1 % (0.0-4.0); Hematocrit 33.1 % (39.0-51.0); Hemoglobin 11.2 gm/dL (13.0-17.0); Lymph # (Auto) 1.4 th/mm3 (1.0-4.8); Lymph % (Auto) 12.7 % (9.0-44.0); Mean Corpuscular HGB Conc 33.8 % (32.0-36.0); Mean Corpuscular Hemoglobin 28.6 pg (27.0-34.0); Mean Corpuscular Volume 84.4 fL (80.0-100.0); Mean Platelet Volume 9.5 fL (7.0-11.0); Mono % (Auto) 9.1 % (0.0-8.0); Neut # (Auto) 8.7 th/mm3 (1.8-7.7); Neut % (Auto) 77.9 % (16.0-70.0); Platelet Count 178 th/mm3 (150-450); Red Blood Count 3.92 mil/mm3 (4.50-5.90); Red Cell Distribution Width 15.3 % (11.6-17.2); White Blood Count 11.2 th/mm3 (4.0-11.0)
[2018-06-04] MEDS ORDERED: Isoproterenol 200mcg/50mL Bag 200 MCG/50 ML BAG IV.CONT ONE (07:08)
[2018-06-04] MEDS ORDERED: Heparin/NS PF Inj 500 ML ONE (07:16)
--- NOTE | 2018-06-04 08:25 | CATHPROC ---
Patient Name: Jonatan Garces Study #: [id number] Initial MD: Bertin Magaña Date of : 1965 Study Date: 06/04/2018 Cardiac Catheterization Report 06/04/2018 8:25:03 AM Financial #: [id number] 1 of 8 Patient Name: Jonatan Garces Study #: [id number] Initial MD: Bertin Magaña Date of : 1965 Study Date: 06/04/2018 Entire Case Report Patient Information Patient Name Jonatan Garces Date of 1965 Age 52 years Financial # [id number] Gender M AlternateID Lab Number 2 Room Number 1332 Height (in) 70.0 Height (cm) 177.8 BSA 2.33 Weight (lbs) 258.1 Weight (kg) 117.3 Patient Address/Phone Number Home Address [facility] Home Phone Number [phone] [place] [phone] Study Information Study Number Admission Scheduled Start Study Start [id number] Jun 01 2018 10:51AM 06/04/2018 Jun 04 2018 7:26AM [place] Service Electrophysiology Study Admit Source Facility Department Other [facility] Pattern Maker Physician and Clinical Staff Initial Bertin Gaines Mechanical Engineering Manager Bernadette Ruvalcaba RCIS Other Anesthesia, BOLT LABELER Recorder Denae Shafer,VENKAT Zepedaub Sunil Rangel,RT(R) Procedures Performed Procedure Location (Site) Vessel Name Ablation Procedure RF Ablation Isthmus Other 06/04/2018 8:25:03 AM Financial #: [id number] 2 of 8 Patient Name: Jonatan Garces Study #: [id number] Initial MD: Bertin Magaña Date of : 1965 Study Date: 06/04/2018 Equipment Time Social Services Manager Description Size Mfg Part Number Used/Scraped BIOSENSE SWIFT CATHETER, CELSIUS DS, 8MM, F [id number] 07:45 FR 7 Used INC. TYPE QUAD *[id number] 08:09 [facility] MEDICAL VASCADE, FR5 CLOSURE SYSTEM FR 5 Used *[id number] 08:09 [employer] MEDICAL VASCADE, FR5 CLOSURE SYSTEM FR 5 Used *[id number] 08:09 [employer] MEDICAL VASCADE, FR5 CLOSURE SYSTEM FR 5 Used *[id number] 08:09 [employer] MEDICAL VASCADE, FR6 CLOSURE SYSTEM FR 6\7 Used *[id number] 08:09 [employer] MEDICAL VASCADE, FR6 CLOSURE SYSTEM FR 6\7 Used *[id number] 07:30 MEDLINE [employer] BLANKET,WARM AIR CCL * Used *[id number] 07:30 [employer] INDUSTRIES PACK, CCL CUSTOM * Used *[id number] 07:30 MEDLINE PACER CORNEJO, LIMB * 2530 *[id number] Used [id number] 07:31 [employer] MEDICAL CATHETER, JSN, QUAD FR 5 Used *[id number] 07:31 [employer] MEDICAL CATHETER, JSN, QUAD FR 5 Used *[id number] 07:31 [employer] MEDICAL CATHETER, JSN, QUAD FR 5 Used *[id number] 07:31 [employer] MEDICAL CATHETER, JSN, QUAD FR 5 Used *[id number] 07:30 [employer] MEDICAL ELECTRODE KIT, BRAYAN X SURFACE * Used *[id number] 737775 07:30 [employer] MEDICAL SHEATH, EPS, FR5 FAST CATH FR 5 Used *[id number] [id number] 07:30 [employer] MEDICAL SHEATH, EPS, FR5 FAST CATH FR 5 Used *[id number] 674403 07:30 [employer] MEDICAL SHEATH, EPS, FR5 FAST CATH FR 5 Used *[id number] 581463 07:30 [employer] MEDICAL SHEATH, EPS, FR6 FAST CATH FR 6 Used *[id number] 893612 07:30 [employer] MEDICAL SHEATH, EPS, FR8 FAST CATH FR 8 Used *[id number] [facility] PAD, ELECTROSURGICAL 07:30 * [id number] *[id number] Used SURGICAL GROUNDING (BLUE) Insurance Information Insurance Payor Private Health Insurance Third Constitution Party Third Constitution Party Number [facility] HMO UHCHMO 06/04/2018 8:25:03 AM Financial #: [id number] 3 of 8 Patient Name: Jonatan Garces Study #: [id number] Initial MD: Bertin Magaña Date of : 1965 Study Date: 06/04/2018 History: Risk Factors Family History of Hypertension Dyslipidemia Previous SC Previous Heart Failure Premature CAD Yes Yes Yes No No Prior Valve Prior PCI Prior CABG Surgery No No No Cerebrovascular Peripheral Artery Chronic Lung On Dialysis Diabetes Disease Disease Disease No No No Yes No Labs Hgb (g/dl) Hct (%) WBC (l/cumm) Platelets (thousands) 11.60-17.00 35.00-51.00 4.00-11.00 150.00-450.00 11.4 33.3 9 192 Glucose (mg/dl) BUN (mg/dl) Creatinine (mg/dl) BUN:Creatinine (1:x) 74.00-106.00 7.00-18.00 0.50-1.30 10.00-20.00 153 25 1.4 17.9 Na (meq/l) K (meq/l) 136.00-145.00 3.50-5.10 140 4.4 INR (PTT:PT) 0.90-1.10 1.1 CPK-MB (ng/ML) 0.50-3.60 Not Drawn Medication Medication Total Dose (Bolus/Oral) Medication Total Dosage/Unit 1% XYLOCAINE 40 mL Medications (Bolus/Oral) Medication Time Given Dosage/Unit Administered By Reason 1% XYLOCAINE 06/04/2018 7:38:36 AM 20 mL Bertin Magaña 20 mL 1% XYLOCAINE given in lab by Bertin Magaña in Left Groin via Subcutaneous. 1% XYLOCAINE 06/04/2018 7:40:57 AM 20 mL Bertin Magaña 20 mL 1% XYLOCAINE given in lab by Bertin Magaña in Right Groin via Subcutaneous. 06/04/2018 8:25:03 AM Financial #: [id number] Patient Name: Jonatan Garces Study #: [id number] Initial MD: Bertin Magaña Date of : 1965 Study Date: 06/04/2018 Medication (Drip) Medication Time Given Dosage/Unit Concentration/Unit Diluent (ml) Solution ISUPREL 06/04/2018 7:54:22 AM 5 mcg/min 1 mg 250 NaCl .9 5 mcg/min ISUPREL given in lab by Anesthesia, BOLT LABELER via Peripheral IV. Pump/Drip Flow = 75 ml/hr using NaCl .9 with a concentration of 1 mg in 250 ml. Ordered by Bertin Magaña. ISUPREL DRIP STOPPED 06/04/2018 8:01:38 AM 0 units/hr 0 0 units/hr ISUPREL DRIP STOPPED given in lab by Anesthesia, BOLT LABELER. Pump/Drip Flow = 0 ml/hr using [Lilli ution Name]. Ordered by Bertin Magaña. Initial Case Assessment Cardiovascular HR Rhythm NIBP Chest Pain 148 AFLUTTER 148/101 0 Edema Present Skin color Skin None Normal Warm Dry Circulatory - Right Pulses Dorsalis Pedis 1 Scale (0,1,2,3,4,d) Circulatory - Left Pulses Dorsalis Pedis 1 Scale (0,1,2,3,4,d) Neurological State Oriented to time-place- Alert Moves all extremities person Respiration - General Respiration Rate SpO2 (%) (B/min) 18 98 06/04/2018 8:25:03 AM Financial #: [id number] Patient Name: Jonatan Garces Study #: [id number] Initial MD: Bertin Magaña Date of : 1965 Study Date: 06/04/2018 Final Case Assessment Cardiovascular HR Rhythm NIBP Chest Pain 88 SR 111/62 0 Edema Present Skin color Skin None Normal Warm Dry Circulatory - Right Pulses Dorsalis Pedis 1 Scale (0,1,2,3,4,d) Circulatory - Left Pulses Dorsalis Pedis 1 Scale (0,1,2,3,4,d) Neurological State Oriented to time-place- Alert Moves all extremities person Respiration - General Respiration Rate SpO2 (%) O2 (lpm) (B/min) 18 99 2 Chronological Log Time Study Chronological Log 7:05:10 Patient arrived via Bed. 7:05:11 Patient Name, D.O.B, / Armband Verified By R.N. 7:05:15 Verbal Stimulation=2 Physical Stimulation=2 Airway=2 Respiration=2 TOTAL=8. (0=absent, 1=li mited, 2=present) 7:05:55 Anesthesia at bedside. Assumes care of patient. SEE RECORDS FOR MEDS AND VITALS DURING PROC EDURE 7:27:26 Reference ECG taken 7:31:50 Patient has been NPO for More than 6Hrs. 7:31:51 Skin Breakdown- NON PER PATIENT 7:31:58 Patient Warmer Placed on the Table. 7:31:59 Disposable Defibrillator Pads Placed On Patient. 7:32:00 Vickie Prominences Protected 7:32:02 A # 20 IV was noted in the Antecubital (right). Grade = 0 7:32:11 A # 18 IV was noted in the Forearm (left). Grade = 0 06/04/2018 8:25:03 AM Financial #: [id number] 6 of 8 Patient Name: Jonatan Garces Study #: [id number] Initial MD: Bertin Magaña Date of : 1965 Study Date: 06/04/2018 7:33:42 History and physical on the chart or being dictated. Assessment: Initial Case, GH=551 BPM, Rhythm=AFLUTTER, KEAQ=998/101 mmhg, Chest Pain=0, Edema=N one, Color=Normal, Skin = Warm, Dry Right Pulses: Frank Ped=1 7:33:43 Left Pulses: Frank Ped=1 Neurological: State=Alert, Ox3, PHILLIPS Respiration: Resp=18 B/min, SpO2=98 % 7:34:18 Table restraints applied according to hospital policy 7:34:21 Bilateral groins prepped with 2% chlorhexidine, and draped after a 3 minute waiting time. 7:35:00 DC'D ESMOLOL AND AMIO DRIPS PER DR MAGAÑA Time Out. Correct patient, procedure, procedure equipment, site and side verified with physicia n present. Time 7:37:05 concurred by MD, individual staff and BOLT LABELER. Time Out #2 - Consents verified, patient in correct position, all results are labled and displa yed, safety precautions 7:37:15 taken, antibiotics administered. Time out concurred by MD, individual staff and BOLT LABELER in procedu re 7:37:55 Case Start 7:38:36 20 mL 1% XYLOCAINE given in lab by Bertin Magaña in Left Groin via Subcutaneous. 7:40:30 Vascular access was obtained in the Fem Vein (left). 7:40:33 Vascular access was obtained in the Fem Vein (left). 7:40:34 Vascular access was obtained in the Fem Vein (left). 7:40:41 A SHEATH, EPS, FR5 FAST CATH FR 5 was advanced into the Fem Vein (left) using the Modified Seldinger technique. 7:40:48 A SHEATH, EPS, FR5 FAST CATH FR 5 was advanced into the Fem Vein (left) using the Modified Seldinger technique. 7:40:51 A SHEATH, EPS, FR5 FAST CATH FR 5 was advanced into the Fem Vein (left) using the Modified Seldinger technique. 7:40:57 20 mL 1% XYLOCAINE given in lab by Bertin Magaña in Right Groin via Subcutaneous. 7:41:03 Vascular access was obtained in the Fem Vein (right). 7:41:04 Vascular access was obtained in the Fem Vein (right). 7:41:06 A SHEATH, EPS, FR6 FAST CATH FR 6 was advanced into the Fem Vein (right) using the Modified Seldinger technique. 7:41:14 A SHEATH, EPS, FR8 FAST CATH FR 8 was advanced into the Fem Vein (right) using the Modified Seldinger technique. A CATHETER, JSN, QUAD FR 5 was advanced vis Fem Vein (right) and placed in the CS. Placement wa s visually 7:42:19 confirmed under fluoroscopy. A CATHETER, JSN, QUAD FR 5 was advanced vis Fem Vein (left) and placed in the HIS. Placement wa s visually 7:42:33 confirmed under fluoroscopy. A CATHETER, JSN, QUAD FR 5 was advanced vis Fem Vein (left) and placed in the HRA. Placement wa s visually 7:42:51 confirmed under fluoroscopy. A CATHETER, JSN, QUAD FR 5 was advanced vis Fem Vein (left) and placed in the RVA. Placement wa s visually 7:43:11 confirmed under fluoroscopy. 7:44:45 MAPPING IN PROGRESS 7:47:07 RF Ablation of the Isthmus with a CATHETER, NAPOLEONUS DS, 8MM, F TYPE QUAD FR 7. 7:52:49 FLUTTER BROKE EP STUDY IN PROGRESS 5 mcg/min ISUPREL given in lab by Anesthesia, BOLT LABELER via Peripheral IV. Pump/Drip Flow = 75 ml/hr using NaCl .9 with 7:54:22 a concentration of 1 mg in 250 ml. Ordered by Bertin Magaña. 0 units/hr ISUPREL DRIP STOPPED given in lab by Anesthesia, BOLT LABELER. Pump/Drip Flow = 0 ml/hr lo herrera [Solution Name]. 8:01:38 Ordered by Bertin Magaña. 8:02:15 Catheter(s) removed without difficulty 8:15:25 Case End (Physician broke scrub) ALL SheathS removed FROM BILAT GROINS; RIGHT SIDE VASCADED (X2) LEFT SIDE VASCADED (X3) pressur e 8:17:14 applied to access site. NO SIGN OF BLEED POST PROCEDURE 06/04/2018 8:25:03 AM Financial #: [id number] Patient Name: Jonatan Garces Study #: [id number] Initial MD: Bertin Magaña Date of : 1965 Study Date: 06/04/2018 8:19:33 Sterile dressing applied to site 8:19:34 No case complications noted. 8:19:35 Cine recording checked. 8:19:36 Bedside Report will be given. 8:19:39 ISC called. Spoke to ASSEMBLY SUPERVISOR 8:22:32 Defibrillator and ground pads removed. Skin intact. 8:22:33 Patient moved to stretcher 8:22:41 Ablation procedure performed: Aflutter. 8:22:49 EP Procedure was performed. A FLUTTER Assessment: Final Case, HR=88 BPM, Rhythm=SR, CSIF=069/62 mmhg, Chest Pain=0, Edema=None, [place] r=Normal, Skin = Warm, Dry Right Pulses: Frank Ped=1 8:23:25 Left Pulses: Frank Ped=1 Neurological: State=Alert, Ox3, PHILLIPS Respiration: Resp=18 B/min, SpO2=99 %, O2=2 lpm End Study - Contrast Media Used In Study Contrast Total Opened (mL) Total Used (mL) Total Wasted (mL) Unspecified 0 0 0 End Study - Maximum Contrast Load Max Contrast Load (mL) 419.0 End Study - Radiation Exposure Fluoro Time (minutes) 2.7 End Study - Patient Disposition Complications Transferred To Interventional Outcome No Telemetry Bed successful 06/04/2018 8:25:03 AM Financial #: [id number]
[2018-06-04] MEDS ORDERED: fentaNYL Citrate Inj 100 MCG/2 ML Ampul ONE (08:46)
--- NOTE | 2018-06-04 09:49 | MA ---
cc: Bertin Jackson MD,Vin Hutchins MD DATE: 06/04/2018 PROCEDURE PERFORMED: Electrophysiologic study, CS cannulation, 3-D mapping, repeat electrophysiologic study and Isuprel infusion. INDICATIONS: Mr. Garces is a 52-year-old gentleman with morbid obesity, high blood pressure, hyperlipidemia, admitted for hip surgery. During this hospitalization he was in atrial flutter with fast ventricular response. Heart rate cannot be controlled despite being on amiodarone., Cardizem p.o. and esmolol. He was referred for electrophysiology study and ablation. The risks, the nature and the benefits of the procedure were clearly said to him. Risks include pneumothorax, cardiac perforation, stroke and even . He understood and agreed to proceed. PROCEDURE: After written informed consent was obtained, the patient was brought to the EP Lab where he was prepped and draped in usual sterile fashion. Conscious sedation was initiated and maintained throughout the procedure by the anesthesiologist. Once sedation was verified, the right and left inguinal area was anesthetized with 2% Xylocaine. Using modified Seldinger technique, the left femoral vein was cannulated on three occasions, three guidewires were advanced over the wire. Three 5-Bengali hemaquets were advanced, then the right femoral vein was cannulated on 2 occasions and 2 guidewires were advanced over the wire. A 6 and then an 8-Bengali hemaquet were advanced. Then, under fluoroscopic guidance through the 5 and 6-Bengali hemaquet, four 5-Bengali Doc curved quadripolar electrophysiology catheters were advanced and placed on the His, upper right atrium, coronary sinus and the right ventricular apex. Basic intervals were measured. They were within normal limits. At this point, when measured the patient was in atrial flutter. Flutter cycle length was around 220 milliseconds. Then, through the 8-Bengali hemaquet, a Cordis Hernandez F-curve, 8 mm mapping and radiofrequency ablation catheter was advanced. Flutter was too fast to be entrained. The catheter was placed at the tricuspid valve annulus and the critical isthmus was mapped. Radiofrequency energy was delivered. During ablation cycle length 4 long. Subsequently, the patient converted into sinus rhythm. Further burn was delivered in the area. Then, pacing lateral to the line showed early activation in the His, corner to the CS that indicated line of block. Then atrial pacing protocol was performed at the coronary sinus and did pace up to 220 milliseconds. No tachyarrhythmia was induced. Then Isuprel was initiated. Atrial pacing protocol was repeated. Again, no tachyarrhythmia was induced. At that point, the procedure was complete. All catheters removed. The patient is going to be transferred to the recovery room. No incident reported. The patient tolerated the procedure. Blood loss minimal. 1. ELECTROCARDIOGRAM: At baseline, the patient was in atrial flutter. Postprocedure, the patient in sinus rhythm. 2. BASIC INTERVALS: Base cycle length was around 440 milliseconds. Post-ablation it was around 1020. AH post-ablation was 90 and HV was 52 milliseconds. 3. ATRIAL PACING PROTOCOL: Wenckebach post-ablation was around 240 milliseconds. No tachyarrhythmia was induced post-ablation. 4. TACHYARRHYTHMIA: Atrial flutter was mapped and ablated. Ablation was successful. CONCLUSION: Successful electrophysiology study, mapping and radiofrequency ablation of atrial flutter. COMMENT AND RECOMMENDATIONS: The patient is going to be transferred to the recovery room. We will observe. She can be discharged home whenever it is okay with the managing team. MD JANI Parnell/CESIA , 09:16 AM , 09:29 AM
--- NOTE | 2018-06-04 10:10 | P.PNFP ---
Subjective Interval history: Patient was seen and evaluated at bedside this morning. He had returned from his ablation procedure and was resting comfortably. He denies any chest pain, shortness of breath, abdominal pain, nausea or vomiting status post ablation procedure this morning. He states that he is feeling a lot better and denies any palpitations. Upon further discussion on his drinking habits, patient confirms that he does drink more than he stated on his initial ED visit. He acknowledges that this may have affected his arrhythmia and has decided to quit drinking. He also understands that he is to follow-up with cardiology after discharge and his primary care physician to follow-up some lab values. All questions were answered at bedside. Results - Labs Result diagrams: 06/04/18 01:28 06/04/18 01:28 Abnormal lab results 06/03/18 06/03/18 06/04/18 Range/Units 12:00 12:00 01:28 WBC 11.2 H (4.0-11.0) th/mm3 RBC 3.79 L 3.92 L (4.50-5.90) mil/mm3 Hgb 11.1 L 11.2 L (13.0-17.0) gm/dL Hct 32.0 L 33.1 L (39.0-51.0) % Neut % (Auto) 82.0 H 77.9 H (16.0-70.0) % Kaufman % (Auto) 9.1 H (0.0-8.0) % Neut # (Auto) 8.3 H 8.7 H (1.8-7.7) th/mm3 Kaufman # (Auto) 1.0 H (0.0-0.9) th/mm3 Chloride (98-107) meq/L BUN 20 H (7-18) mg/dL Creatinine 1.32 H (0.60-1.30) mg/dL Estimated GFR 57 L (>89) mL/min Random Glucose 110 H (74-106) mg/dL Calcium 8.3 L (8.5-10.1) mg/dL AST 9 L (15-37) U/L Total Protein 6.3 L (6.4-8.2) g/dL Albumin 3.3 L (3.4-5.0) g/dL 06/04/18 Range/Units 01:28 WBC (4.0-11.0) th/mm3 RBC (4.50-5.90) mil/mm3 Hgb (13.0-17.0) gm/dL Hct (39.0-51.0) % Neut % (Auto) (16.0-70.0) % Kaufman % (Auto) (0.0-8.0) % Neut # (Auto) (1.8-7.7) th/mm3 Kaufman # (Auto) (0.0-0.9) th/mm3 Chloride 110 H (98-107) meq/L BUN (7-18) mg/dL Creatinine 1.32 H (0.60-1.30) mg/dL Estimated GFR 57 L (>89) mL/min Random Glucose 108 H (74-106) mg/dL Calcium 8.3 L (8.5-10.1) mg/dL AST (15-37) U/L Total Protein (6.4-8.2) g/dL Albumin (3.4-5.0) g/dL Short CBC 06/03/18 06/04/18 Range/Units 12:00 01:28 WBC 10.2 11.2 H (4.0-11.0) th/mm3 Hgb 11.1 L 11.2 L (13.0-17.0) gm/dL Hct 32.0 L 33.1 L (39.0-51.0) % Plt Count 185 178 (150-450) th/mm3 [facility] 06/03/18 06/04/18 12:00 01:28 Sodium 139 142 Potassium 4.3 4.1 Chloride 107 110 H Carbon Dioxide 23.4 24.0 BUN 20 H 17 Creatinine 1.32 H 1.32 H Calcium 8.3 L 8.3 L Liver Function 06/03/18 Range/Units 12:00 Total Bilirubin 0.3 (0.2-1.0) mg/dL AST 9 L (15-37) U/L ALT 18 (12-78) U/L Alkaline Phosphatase 58 (45-117) U/L Albumin 3.3 L (3.4-5.0) g/dL Physical Exam Vital signs: Vital Signs 06/03/18 10:00 06/03/18 12:00 06/03/18 14:00 Temperature 98.2 F Pulse Rate 88 98 H 98 H Respiratory Rate 18 Blood Pressure 137/69 Pulse Oximetry 96 06/03/18 16:00 06/03/18 18:00 06/03/18 20:00 Temperature 98.5 F 98.1 F Pulse Rate 108 H 107 H 145 H Respiratory Rate 21 18 Blood Pressure 139/63 118/82 Pulse Oximetry 93 L 96 06/03/18 22:00 06/04/18 00:00 06/04/18 02:00 Temperature 98.4 F Pulse Rate 145 H 143 H 140 H Respiratory Rate 20 Blood Pressure 136/83 Pulse Oximetry 95 06/04/18 04:00 06/04/18 06:00 Temperature 98.4 F Pulse Rate 142 H 143 H Respiratory Rate 19 Blood Pressure 133/75 Pulse Oximetry 95 Intake & Output 06/03/18 06/04/18 06/04/18 18:59 06:59 18:59 Intake Total 1860 / 1860 1740 / 1740 Output Total 1000 / 1000 1949 / 1950 Balance 860 / 860 -210 / -210 Weight 113.9 kg Intake: IV 1750 / 1750 1500 / 1500 Cordarone Inj 450 MG In D5W Inj 250 / 250 241 ML @ 1 MG/MIN 33.33 mls/hr IV.CONT TITRATE PRN Rx#: [id number] Brevibloc 2,500 mg/NS 250 mL 1500 / 1500 1500 / 1500 Premix 2,500 mg In 250 ml @ 50 MCG/KG/MIN 32.318 mls/hr IV. CONT TITRATE PRN Rx#:[id number] Oral 110 / 110 240 / 240 Output: Urine 1000 / 1000 1949 / 1950 Other: # Voids 0 # Bowel Movements 0 0 Narrative: Well-appearing man, resting comfortably, no acute distress. - Routine HEENT Exam Head: Present: normocephalic, atraumatic - Routine Respiratory Exam Present: CTA bilaterally Comments: Anterior auscultation. Unable to auscultate posteriorly, due to patient being slightly drowsy status post anesthesia from procedure. - Routine Cardiovascular Exam Present: RRR, S1, S2 - Routine Abdominal Exam Present: soft, normoactive bowel sounds Assessment and Plan - Assessment (1) Atrial flutter with rapid ventricular response Code(s): I48.92 - Unspecified atrial flutter Status: Acute Plan: 06/05: At bedside patient's telemetry showed normal sinus rhythm with heart rate of 94. Patient denies any palpitations or chest pain status post cardiac ablation this morning. Procedure was tolerated well. Will follow up with cardiology recommendations in regards to medications. Patient aware that alcohol is cardiotoxic, is willing to quit drinking. Will follow up with PCP once discharges for LFTs, thyroid function, and PFTs due to amiodarone use. 06/04: Paroxysmal atrial flutter, new since preoperative EKG 2 months ago. Hemodynamically stable, asymptomatic Heart rates have minimally improved over the last 24 hours, cardiology following and Dr. Jackson following; added additional IV digoxin, IV amiodarone boluses yesterday and diltiazem p.o. scheduled last night, with continued a flutter tachycardia, plans for doing ablation this evening Follow-up recommendations per cardiology Continue IV amiodarone and esmolol for now, continue aspirin and Eliquis per cardiology Echocardiogram: Left ventricular function moderately reduced with EF 35-40% (2) CHF (congestive heart failure) Code(s): I50.9 - Heart failure, unspecified Status: Acute Plan: Cardiology recommendations appreciated. CHF per echocardiogram, patient currently asymptomatic Echocardiogram: Left ventricular function moderately reduced with EF 35-40% BNP on admission 214 (3) Elevated serum creatinine Code(s): R79.89 - Other specified abnormal findings of blood chemistry Status : Acute Plan: Creatinine 1.88 on admission, improved to 1.32 today. May be due to dehydration versus reduced perfusion from arrhythmia Avoid NSAIDs, continue with IV hydration Follow-up CMP in a.m. (4) Hypertension Code(s): I10 - Essential (primary) hypertension Status: Chronic Plan: Normotensive, previously borderline hypotensive Continue home narcotics for pain management, caution with antihypertensive agents Follow-up recommendations of cardiology, continue NURIS inhibitor and scheduled diltiazem (5) Degenerative joint disease of left hip Code(s): M16.12 - Unilateral primary osteoarthritis, left hip Status: Acute Plan: Was scheduled for surgery with orthopedic surgery on 06/01 We will have to reevaluate as outpatient (6) Chronic back pain Code(s): M54.9 - Dorsalgia, unspecified; G89.29 - Other chronic pain Status: Acute Plan: Continue home [place] 10 every 8 hours as needed Will add Tylenol IV as needed overnight if any calls for pain Continue to encourage ambulation with assistance (7) Symptoms concerning nutrition, metabolism, and development Code(s): R63.8 - Other symptoms and signs concerning food and fluid intake Status: Acute Plan: Fluids: NS @ 150 mls/hr Electrolytes: CMP normal, follow-up today's labs Nutrition: Cardiac diet (8) DVT prophylaxis Status: Acute Plan: On 06/02 cardiology restarted Jessica SCDs - Assessment and Plan 52-year-old male, past medical history of hypertension, dislocated right hip, chronic back pain, presents from preop for incidentally discovered atrial flutter with RVR and elevated creatinine. Discharge Planning: Pending no events overnight, and clearance from cardiology, anticipated discharge tomorrow. (4) Hypertension Qualifiers: Hypertension type: essential hypertension Qualified Code(s): I10 - Essential (primary) hypertension (5) Degenerative joint disease of left hip Qualifiers: Osteoarthritis type: primary Qualified Code(s): M16.12 - Unilateral primary osteoarthritis, left hip (6) Chronic back pain Qualifiers: Back pain location: low back pain Back pain laterality: unspecified Sciatica presence: unspecified whether sciatica present Qualified Code(s): M54.5 - Low back pain; G89.29 - Other chronic pain
[2018-06-04] MEDS: Sod Chloride 0.9% Inj 1,000 ML IV.CONT SCH ×3 (11:20→15:08)
[2018-06-04] MEDS: Lisinopril 10 MG Tablet PO SCH (11:21)
[2018-06-04] MEDS ORDERED: Lidocaine PF 1% Inj 5 ML Syringe INFILTRATN ONE (12:00)
--- NOTE | 2018-06-04 15:53 | ECG ---
Date Performed: 06/04/2018 Time Performed: 10:05:48 PTAGE: 52 years EKG: Sinus rhythm NONSPECIFIC T-WAVE ABNORMALITY When compared to previous tracing, sinus rhythm replaces atrial Flutt er. ST-T wave changes persist. BORDERLINE ECG PREVIOUS TRACING : 06/02/2018 05.38 DOCTOR: Wan Lanza Interpretating Date/Time 06/04/2018 15:53:08
--- NOTE | 2018-06-04 15:53 | ECG ---
Date Performed: 06/02/2018 Time Performed: 05:38:04 PTAGE: 52 years EKG: Atrial flutter-tachycardia with rapid ventricular response. Diffuse nonspecific ST-T wave c hanges. Since previous tracing, no significant change noted ATYPICAL ECG PREVIOUS TRACING : 06/01/2018 10.46.41 DOCTOR: Wan Lanza Interpretating Date/Time 06/04/2018 15:51:29
[2018-06-05 06:06] LABS: Activated Partial Thrombo Time 29.4 sec (24.3-30.1); INR 1.1 Ratio; Prothrombin Time 11.6 sec (9.8-11.6)
--- NOTE | 2018-06-05 08:30 | ECG ---
Date Performed: 06/05/2018 Time Performed: 07:13:21 PTAGE: 52 years EKG: Sinus rhythm NONSPECIFIC T-WAVE ABNORMALITY BORDERLINE ECG PREVIOUS TRACING : 06/04/2018 10.05 No significant change from previous tracing noted. DOCTOR: Daniel Diaz Interpretating Date/Time 06/05/2018 08:30:05
[2018-06-05] MEDS: Lisinopril 10 MG Tablet PO SCH (08:45)
--- NOTE | 2018-06-05 09:40 | P.PNFP ---
Subjective Interval history: Patient seen and examined this morning bedside. Patient has been eating and drinking a little bit, and he feels like his appetite is improving. No nausea or vomiting he has been ambulating with assistance and has moved from the bed to the chair. He has a cane on his side. He has been passing gas overnight. He denies any chest pain or shortness of breath or dizziness. Results - Labs Result diagrams: 06/04/18 01:28 06/04/18 01:28 Physical Exam Vital signs: Vital Signs 06/04/18 10:00 06/04/18 12:00 06/04/18 14:00 Temperature 98.3 F Pulse Rate 92 H 96 H 98 H Respiratory Rate 18 Blood Pressure 141/84 H Pulse Oximetry 95 06/04/18 16:00 06/04/18 18:00 06/04/18 20:00 Temperature 98.2 F 99 F Pulse Rate 102 H 102 H 94 H Respiratory Rate 20 20 Blood Pressure 152/85 H 150/102 H Pulse Oximetry 98 97 06/04/18 22:00 06/05/18 00:00 06/05/18 02:00 Temperature 98.9 F Pulse Rate 92 H 94 H 81 Respiratory Rate 18 Blood Pressure 152/83 H Pulse Oximetry 97 06/05/18 04:00 06/05/18 06:00 Temperature 98.9 F Pulse Rate 80 88 Respiratory Rate 19 Blood Pressure 155/79 H Pulse Oximetry 98 Intake & Output 06/04/18 06/05/18 06/05/18 18:59 06:59 18:59 Intake Total 480 / 480 120 / 120 Output Total 750 / 750 1000 / 1000 Balance -270 / -270 -880 / -880 Weight 114.5 kg Intake: Oral 480 / 480 120 / 120 Output: Urine 750 / 750 1000 / 1000 Other: # Voids 0 # Bowel Movements 0 0 - Constitutional no acute distress - Routine HEENT Exam Head: Present: normocephalic - Routine Respiratory Exam Present: CTA bilaterally. Absent: decreased breath sounds, respiratory distress - Routine Cardiovascular Exam Present: RRR, S1, S2 - Routine Abdominal Exam Present: soft, normoactive bowel sounds. Absent: tenderness - Routine Extremities Exam Absent: cyanosis, clubbing, edema - Routine Skin Exam Present: intact - Routine Neurological Exam Present: alert, oriented X3 Assessment and Plan - Assessment (1) Atrial flutter with rapid ventricular response Code(s): I48.92 - Unspecified atrial flutter Status: Acute Plan: 06/05: Patient postop day #1 from ablation procedure with Dr. Jackson, patient cleared for discharge by cardiology. Heart rate 81 this morning. Patient asymptomatic. Pt started on Eliquis on 06/04 by , plan to d/c on continued anticoagulation and f/u w/ next week in office. 06/04: At bedside patient's telemetry showed normal sinus rhythm with heart rate of 94. Patient denies any palpitations or chest pain status post cardiac ablation this morning. Procedure was tolerated well. Will follow up with cardiology recommendations in regards to medications. Patient aware that alcohol is cardiotoxic, is willing to quit drinking. Will follow up with PCP once discharges for LFTs, thyroid function, and PFTs due to amiodarone use. 06/03:Paroxysmal atrial flutter, new since preoperative EKG 2 months ago. Hemodynamically stable, asymptomatic Heart rates have minimally improved over the last 24 hours, cardiology following and Dr. Jackson following; added additional IV digoxin, IV amiodarone boluses yesterday and diltiazem p.o. scheduled last night, with continued a flutter tachycardia, plans for doing ablation this evening Follow-up recommendations per cardiology Continue IV amiodarone and esmolol for now, continue aspirin and Eliquis per cardiology Echocardiogram: Left ventricular function moderately reduced with EF 35-40% (2) CHF (congestive heart failure) Code(s): I50.9 - Heart failure, unspecified Status: Acute Plan: Cardiology recommendations appreciated. CHF per echocardiogram, patient currently asymptomatic Echocardiogram: Left ventricular function moderately reduced with EF 35-40% BNP on admission 214 d/c w/ f/u to cardiology, continue home med ACEi/thiazide (3) Elevated serum creatinine Code(s): R79.89 - Other specified abnormal findings of blood chemistry Status : Acute Plan: Creatinine 1.88 on admission, improved to 1.32 May be due to dehydration versus reduced perfusion from arrhythmia Avoid NSAIDs, continue with IV hydration Pt may have baseline CKD, f/u with PCP and repeat CMP with PCP (4) Hypertension Code(s): I10 - Essential (primary) hypertension Status: Chronic Plan: Normotensive, previously borderline hypotensive Continue home narcotics for pain management, caution with antihypertensive agents Continue home BP meds (5) Degenerative joint disease of left hip Code(s): M16.12 - Unilateral primary osteoarthritis, left hip Status: Acute Plan: Was scheduled for surgery with orthopedic surgery on 06/01 We will have to reevaluate as outpatient (6) Chronic back pain Code(s): M54.9 - Dorsalgia, unspecified; G89.29 - Other chronic pain Status: Acute Plan: Continue home [place] 10 every 8 hours as needed Will add Tylenol IV as needed overnight if any calls for pain Continue to encourage ambulation with assistance (7) Symptoms concerning nutrition, metabolism, and development Code(s): R63.8 - Other symptoms and signs concerning food and fluid intake Status: Acute Plan: Fluids: PO Electrolytes: CMP normal Nutrition: Cardiac diet (8) DVT prophylaxis Status: Acute Plan: On 06/02 cardiology restarted Jackie Lopez - Assessment and Plan 52-year-old male, past medical history of hypertension, dislocated right hip, chronic back pain, presents from preop for incidentally discovered atrial flutter with RVR and elevated creatinine. Discharge Planning: Discharge pending recommendations of cardiology, and follow-up status post ablation this evening (4) Hypertension Qualifiers: Hypertension type: essential hypertension Qualified Code(s): I10 - Essential (primary) hypertension (5) Degenerative joint disease of left hip Qualifiers: Osteoarthritis type: primary Qualified Code(s): M16.12 - Unilateral primary osteoarthritis, left hip (6) Chronic back pain Qualifiers: Back pain location: low back pain Back pain laterality: unspecified Sciatica presence: unspecified whether sciatica present Qualified Code(s): M54.5 - Low back pain; G89.29 - Other chronic pain
--- NOTE | 2018-06-05 10:54 | P.PNCA ---
Subjective Interval history: No acute events Physical Exam Vital signs: Vital Signs 06/04/18 12:00 06/04/18 14:00 06/04/18 16:00 Temperature 98.3 F 98.2 F Pulse Rate 96 H 98 H 102 H Respiratory Rate 18 20 Blood Pressure 141/84 H 152/85 H Pulse Oximetry 95 98 06/04/18 18:00 06/04/18 20:00 06/04/18 22:00 Temperature 99 F Pulse Rate 102 H 94 H 92 H Respiratory Rate 20 Blood Pressure 150/102 H Pulse Oximetry 97 06/05/18 00:00 06/05/18 02:00 06/05/18 04:00 Temperature 98.9 F 98.9 F Pulse Rate 94 H 81 80 Respiratory Rate 18 19 Blood Pressure 152/83 H 155/79 H Pulse Oximetry 97 98 06/05/18 06:00 06/05/18 08:00 Temperature 99 F Pulse Rate 88 81 Respiratory Rate 17 Blood Pressure 141/75 H Pulse Oximetry 98 Intake & Output 06/04/18 06/05/18 06/05/18 18:59 06:59 18:59 Intake Total 480 / 480 120 / 120 Output Total 750 / 750 1000 / 1000 Balance -270 / -270 -880 / -880 Weight 114.5 kg Intake: Oral 480 / 480 120 / 120 Output: Urine 750 / 750 1000 / 1000 Other: # Voids 0 # Bowel Movements 0 0 - Constitutional no acute distress - Routine Respiratory Exam Present: CTA bilaterally - Routine Cardiovascular Exam Present: RRR, S1, S2 - Routine Abdominal Exam Present: soft Assessment and Plan - Plan Atrial flutter s/p ablation in NSR, plan for d/c today. F/up with Dr. Jackson. Continue Eliqutoby. Please feel free to contact me with any questions.
[2018-06-05 11:06] LABS: Baso % (Auto) 0.3 % (0.0-2.0); Eos # (Auto) 0.1 th/mm3 (0.0-0.4); Eos % (Auto) 0.7 % (0.0-4.0); Hematocrit 32.9 % (39.0-51.0); Hemoglobin 11.3 gm/dL (13.0-17.0); Lymph # (Auto) 1.6 th/mm3 (1.0-4.8); Mean Corpuscular HGB Conc 34.4 % (32.0-36.0); Mean Corpuscular Hemoglobin 28.9 pg (27.0-34.0); Mean Corpuscular Volume 84.2 fL (80.0-100.0); Mono # (Auto) 0.9 th/mm3 (0.0-0.9); Platelet Count 182 th/mm3 (150-450); Red Blood Count 3.91 mil/mm3 (4.50-5.90); Red Cell Distribution Width 14.8 % (11.6-17.2); White Blood Count 9.6 th/mm3 (4.0-11.0)
[2018-06-05 11:27] LABS: Albumin 3.3 g/dL (3.4-5.0); Anion Gap 8 meq/L (5-15); Aspartate Aminotransferase 14 U/L (15-37); Blood Urea Nitrogen 14 mg/dL (7-18); Calcium 8.8 mg/dL (8.5-10.1); Carbon Dioxide 26.3 meq/L (21.0-32.0); Chloride 106 meq/L (98-107); Glomerular Filtration Rate 66 mL/min (>89); Glucose,Random 116 mg/dL (74-106); Potassium 3.6 meq/L (3.5-5.1); Sodium 140 meq/L (136-145)
[2018-06-05 11:28] LABS: Alanine Aminotransferase 19 U/L (12-78)
[2018-06-05 11:31] LABS: Alkaline Phosphatase 60 U/L (45-117); Total Protein 6.7 g/dL (6.4-8.2)
--- NOTE | 2018-06-24 10:38 | P.DS ---
Date of admission: 06/01/18 10:51 Primary care physician: Christ Wilson MD Brief History from admission: 52-year-old male, past medical history of hypertension, dislocated right hip, chronic back pain, presents from preop for incidentally discovered atrial flutter with RVR and elevated creatinine. The patient came in for surgery today and was told that he had an irregular heart beat. He was told that he cannot have surgery and was taken down to the ER. His preoperative EKG was normal 2 weeks ago (05/15), and he has never been told he has any arrythmias or heart problems. He denies any chest pains or palpitations. He has been SOB going up and down the stairs but he thought it was related to his broken hip. His shortness of breath has been going on for a long time, since he has been deconditioned from the broken hip. He denies any chest pain or palpitations. No new symptoms. DS: Diagnosis - Discharge Diagnosis (1) Atrial flutter with rapid ventricular response Status: Acute (2) CHF (congestive heart failure) Status: Acute (3) Elevated serum creatinine Status: Acute (4) Hypertension Status: Chronic (5) Degenerative joint disease of left hip Status: Acute (6) Chronic back pain Status: Acute (7) Symptoms concerning nutrition, metabolism, and development Status: Acute (8) DVT prophylaxis Status: Acute DS: Medications - Discharge Medications Prescriptions: apixaban [Eliquis] 5 mg PO BID 90 Days #180 tab DS: Summary Hospital Course: 52-year-old male, past medical history of hypertension, dislocated right hip, chronic back pain, presents from preop for incidentally discovered atrial flutter with RVR and elevated creatinine. Patient was asymptomatic. Patient was placed on IV amiodarone and IV esmolol drip, cardiology was consulted who recommended to continue IV amiodarone and IV esmolol and consider cardioversion if a flutter did not convert on the following drugs above. On the second of the hospital course the patient had a cardiac ablation due to continuous atrial flutter. The procedure was well tolerated with no complications. His elevated creatinine also resolved. An echocardiogram was also ordered and revealed left ventricular function moderately reduced with EF 35-40%. He was discharged home on Eliquis 5 mg daily, Percocet q. 8, lisinopril 12.5 mg twice daily. He is to follow-up with cardiology and his PCP and to follow-up on the following lab orders of thyroid and liver function tests. - Time Spent with Patient Total time spent providing and/or coordinating discharge services: Less than 30 minutes - Quality: VTE Deep Vein Thrombosis/Pulmonary Embolism Present on Admission: No Results Procedures completed during hospitalization: Cardiac ablation 06/03/18 - Impressions ITS Impressions Chest X-Ray 06/01/18 10:19 CONCLUSION: Negative examination. Discharge Plan - Discharge Disposition Patient Disposition: Discharge Home - Discharge Condition Condition: Stable - Discharge Order Discharge Orders: Discharge Order (Routine); Ordered 06/05/18 Ordered By: Vianey Escalante - Physicians Team Primary Care Provider: Christ Wilson Attending Provider: Ronak Lutz Other Providers: Daniel Diaz MD ; [email or web address]urance ; Bertin Jackson MD
== END 2018-06-05 15:35 | disposition home or self-care (01) ==
LOC: NEPC 06:26 → NEDA 10:51 → N03 16:20
PROVIDERS: ADMIT Family Medicine; ATTEND Family Medicine

== ENCOUNTER 2018-07-13 05:27 | Inpatient (IN) ==
[2018-07-13] MEDS ORDERED: Chlorhexidine Gluconate 2% 1 Pack (2 Cloths) TOPICAL ONE (05:43)
[2018-07-13] MEDS ORDERED: Metoprolol Tartrate 25 MG Tablet PO ONE (05:43)
[2018-07-13] MEDS ORDERED: Dexamethasone Inj 20 MG/5 ML Vial IV.PUSH PRN (05:47)
[2018-07-13] MEDS ORDERED: Chlorhexidine 4% Topical 120 APPLIC/120 ML Bottle TOPICAL SCH (06:00)
[2018-07-13] MEDS ORDERED: Sodium Chlor 0.9% Inj 40 ML, Bupivacaine Liposo PF 1.3% Inj 20 ML P-ARTICULR SCH ×2 (06:00)
[2018-07-13] MEDS ORDERED: TRANEXAMIC ACID IV.SIG SCH (06:00)
[2018-07-13] MEDS ORDERED: Sodium Chlor 0.9% Inj 500 ML IV.SIG SCH (06:00)
[2018-07-13] MEDS ORDERED: SODIUM CHLOR 0.9% IV.SIG SCH (06:00)
[2018-07-13] MEDS ORDERED: Vancomycin Inj 1,000 MG in Sodium Chlor 0.9% Inj 250 ML IV.SIG SCH (06:00)
[2018-07-13] MEDS ORDERED: ceFAZolin 2 GM Premix Inj 2 GM/50 ML PIGGYBACK IV.SIG SCH (06:00)
[2018-07-13] MEDS ORDERED: Post-op Orders (for Pharmacy) OTHER STA (06:45)
[2018-07-13] MEDS ORDERED: HYDROmorphone PF Inj 1 MG/ML Ampul IV.PUSH PRN (06:45)
[2018-07-13] MEDS ORDERED: Zolpidem Tartrate 5 MG Tablet PO PRN (06:45)
[2018-07-13] MEDS ORDERED: Bisacodyl 10 MG Supp RECTAL PRN (06:45)
[2018-07-13] MEDS ORDERED: Lidocaine PF 1% Inj 5 ML Syringe INFILTRATN ONE (06:50)
[2018-07-13] MEDS ORDERED: Glycopyrrolate Inj 1 MG/5 ML Syringe IV.PUSH ONE (06:50)
[2018-07-13] MEDS ORDERED: Phenylephrine/NS 1000 MCG/10ML Syringe IV.PUSH ONE (06:50)
[2018-07-13] MEDS ORDERED: Neostigmine Inj 5 MG/5 ML Syringe IV.PUSH ONE (06:50)
[2018-07-13] MEDS ORDERED: HYDROmorphone PF Inj 2 MG/ML Vial ONE (07:42)
[2018-07-13] MEDS ORDERED: Thrombin Topical 20,000 UNIT Spray Kit TOPICAL ONE (07:57)
[2018-07-13] MEDS ORDERED: Tranexamic Acid Inj 3,000 MG in Sodium Chlor 0.9% Inj 100 ML P-ARTICULR SCH (08:49)
[2018-07-13] MEDS ORDERED: LISINOPRIL HYDROCHLOROTHIAZIDE PO SCH (09:00)
[2018-07-13] MEDS ORDERED: fentaNYL Citrate Inj 100 MCG/2 ML Ampul ONE (09:08)
[2018-07-13] MEDS ORDERED: *morphine SULFATE 10 MG/ML PERIprocedure ONLY ONE ×2 (09:31→10:01)
[2018-07-13] MEDS ORDERED: *Meperidine Inj 25 MG/ML Vial PERIprocedural Use ONLY ONE (10:00)
[2018-07-13] MEDS: hydroCHLOROthiazide 25 MG Tablet PO SCH (10:42)
[2018-07-13] MEDS: Multivitamin/Minerals Therapeutic Tablet PO SCH ×2 (10:43→21:04)
[2018-07-13] MEDS: Senna/Docusate Sodium 8.6/50 MG Tablet PO SCH ×2 (10:43→21:05)
[2018-07-13] MEDS: Lisinopril 20 MG Tablet PO SCH (10:43)
--- NOTE | 2018-07-13 11:15 | XR ---
EXAM DATE: 07/13/2018 10:52 AM EDT AGE/SEX: 52 years / Male INDICATIONS: Post-op right hip. CLINICAL DATA: This is the patient's initial encounter. Patient reports that signs and symptoms have been present for 1 day and indicates a pain score of Nonresponsive. MEDICAL/SURGICAL HISTORY: None. None. COMPARISON: No prior exams available for comparison. FINDINGS: The patient is status post a total hip arthroplasty. Prosthesis is well-seated. Alignment is anatomic . A fracture is not appreciated. CONCLUSION: Anatomic alignment. Eder Merrill MD FACR Electronically signed by: Eder Merrill MD 07/13/2018 11:13 AM EDT
--- NOTE | 2018-07-13 12:16 | MP ---
cc: Don Chambers MD DATE OF OPERATION: 07/13/2018 PREOPERATIVE DIAGNOSIS: Right hip osteoarthritis. POSTOPERATIVE DIAGNOSIS: Right hip osteoarthritis. PROCEDURE PERFORMED: Right total hip arthroplasty. SURGEON: Don Chambers MD ASSISTANT TO THE VICE PRESIDENT: LAWRENCE Oneill. ANESTHESIA: General. ESTIMATED BLOOD LOSS: 200 mL. COMPLICATIONS: None. IMPLANTS USED: DePuy Corail size 12 press-fit standard offset femoral stem, size 56 solid Estelline Gription cup, size 36 mm cobalt chrome head, size +15.5 neck, size 36 mm highly cross-linked polyethylene +4 high offset liner with a 10-degree posterior high wall. JUSTIFICATION: This patient is a 52-year-old male with history of severe end-stage osteoarthritis involving the right hip. He has severe disabling pain with standing, walking, ambulation, weightbearing activities and severe pain at rest. He has failed greater than 3 months of nonoperative conservative treatment to include medication therapy, injections, ambulatory assist aids, home exercise program, activity modification, weight loss attempts. X-rays of the right hip reveal severe osteoarthritis and [id number] joint space narrowing, subchondral sclerosis, subchondral cyst, osteophyte formation with subluxation. The patient was counseled as to the risks, benefits and alternatives to a total hip arthroplasty. The risks were discussed, which include, but are not limited to anesthesia, bleeding, infection, damage to nerves and blood vessels, pain, stiffness, fracture, dislocation, leg length discrepancy, blood clots, pulmonary embolus and even . The patient's pain is severe and he favored the benefits over the risks of the procedure to proceed with surgery. PROCEDURE IN DETAIL: Written consent was obtained, the patient was identified by name, taken to the operating room and placed supine on the operating table. General anesthesia to the patient as well as 2 grams of IV Ancef and 1 gram IV vancomycin. The patient was carefully turned to the left lateral decubitus position. A lateral arm roll was placed. All bony prominences and pressure were well padded. The right hip and right lower extremity was then prepped and draped using isopropyl alcohol, Hibiclens solution and ChloraPrep solution. After a timeout was performed, a longitudinal incision was made over the posterolateral aspect of the right hip. The fascial layer was incised. The piriformis and capsule was incised and tagged with #2 FiberWire suture. The hip was dislocated. An oscillating saw used to perform a femoral neck cut. Attention was first turned to the acetabulum where a 10-blade scalpel was used to excise the labrum. Sequential reaming began at a size 49 and was carried through to a size 56. Subsequently, a solid 56 mm Estelline cup was then implanted in approximately 45 degrees of abduction and 15 degrees of anteversion. There was good purchase fixation of after insertion of the cup. A screw hole eliminator was placed, followed by the +4 high offset polyethylene high cross-linked liner. The liner was impacted in place and tested for stability. Attention was turned to the femur where a box cutting osteotome was used to gain entrance into the intramedullary canal of the femur. This was followed by canal finder and lateralizing sequential broaching. Began at size 8; was carried through to size 12. Calcar planer was used to plane the calcar. Trial head and neck combination were evaluated and final components implanted. With the current components, the leg could achieve full extension and external rotation without evidence of anterior instability or impingement. The hip could be flexed 90 degrees and internally rotated approximately 70 degrees for evidence of posterior instability. Soft tissue tension felt appropriate and clinically the leg lengths felt relatively symmetric. The surgical wound was thoroughly irrigated with sterile saline, pulse lavage, antibiotic impregnated solution. The piriformis capsule was repaired with #1 Vicryl suture, subcuticular layer with 2-0 Vicryl suture. Skin incision closed with Dermabond. Sterile dressing applied. The patient tolerated the procedure well. No intraoperative complications noted. Fareed Field, Physician Mechanical Engineering Intern, Certified was present for the entire procedure to include patient positioning and the procedure itself. The medical necessity of physician investment sales assistant was indicated in this case due to the complexity procedure. He assisted with appropriate manipulation of the leg and also retraction, tendon, bone, neurovascular structures. He assisted in preparation of bone and also implantation of the prosthetic replacement. MD MADISON Rogers/rodrick/jonathan , 08:58 AM , 09:05 AM
[2018-07-13] MEDS: ceFAZolin Inj 2,000 MG in Sodium Chlor 0.9% Inj 100 ML IV.SIG SCH ×2 (13:05→21:03)
--- NOTE | 2018-07-13 16:44 | P.CONIM ---
History of Present Illness Service: [facility] Consult date: 07/13/18 Requesting Physician: Don Chambers Reason for Consult: Medical management Primary Care Provider: UNKNOWN Family Provider: Christ Wilson MD Chief Complaint: Right hip replacement History of Present Illness: Mr. Garces is a 52 yo M with H R hip osteoarthritis, HTN, and atrial flutter who was seen today shortly after R hip arthroplasty. Per discussion with Mr. Garces, he had been having right hip pain for ~2 years ; he at first thought he had pinched a nerve so delayed consideration of hip replacement, but after some time decided to seek care. Recently [06/2018], he was planning for hip replacement but was tachycardic and found to have atrial flutter. Patient underwent an ablation and was placed on Eliquis; he subsequently had been doing well without the exertional shortness of breath he had prior to ablation. Patient has recently been doing well preoperatively. No reported chest pain, shortness of breath, abdominal pain, abnormal bowel movements, abnormal urination, or other concerns. Patient drinks occasionally but not regularly. No smoking. Patient has recently been considering losing weight. Interval: Per EMR review today; patient underwent right total arthroplasty per Dr. Chambers. No complications. EBL 200ml. patient has had stable VS post-operatively Review of Systems Constitutional: Denies fatigue, Denies fever(s), Denies headache(s) Eyes: Denies loss of vision Ears, Nose, Mouth, and Throat: Denies nasal congestion, Denies nasal discharge Cardiovascular: Denies chest pain, Denies shortness of breath Respiratory: Denies chest congestion, Denies cough Gastrointestinal: Denies abdominal pain, Denies vomiting Genitourinary: Denies urinary frequency, Denies urinary urgency Musculoskeletal: Denies back pain, Denies joint pain Skin/Breast: Denies rash, Denies wounds Neurologic: Denies loss of vision, Denies tingling/numbness/burning sensations Psychiatric: Denies anxiety, Denies depression Endocrine: Denies increased urination, Denies rapid, pounding, or irregular heartbeat Hematologic/Lymphatic: Denies easy bleeding, Denies easy bruising PMFSH - History History Provided By: Patient - Medical History Medical History: Medical History (Last Reviewed 07/13/18 @ 08:21 by Mercedez Bacon) Arthritis Dislocated hip Hyperlipidemia Hypertension Obstructive sleep apnea on CPAP - Surgical History Surgical History: Surgical History (Last Updated 07/13/18 @ 19:34 by John House MD) S/P ablation of atrial flutter S/P ablation of atrial flutter Hx of umbilical hernia repair - Family History Family History: Family History (Last Updated 07/13/18 @ 19:33 by John House MD) Father Family history of acute myocardial infarction Other Heart disease - Tobacco History Second Hand Smoke Exposure: No Smoking Status: Never smoker - Alcohol History How Often Do You Have a Drink Containing Alcohol: 2 to 4 times a month - Substance Use History Substance History: No History of Abuse - Travel History Recent Travel in the [place] Within the Last 8 Weeks: No Recent Travel Out of the Country Within the Last 8 Weeks: No Medications and Allergies Active Medications: Active Medications Hydrocodone Bitart/Acetaminophen ([place] 7.5/325) 1 tab PO Q4H PRN PRN Reason: PAIN LESS THAN 5 ON SCALE Last Admin: 07/13/18 15:47 Dose: 1 tab Hydrocodone Bitart/Acetaminophen ([place] 7.5/325) 2 tab PO Q6H PRN PRN Reason: PAIN SCALE 5 TO 10 Last Admin: 07/13/18 12:18 Dose: 2 tab Al Hydroxide/Mg Hydroxide (Milk Of Maurice Pascual) 30 ml PO BID PRN PRN Reason: Mild Constipation Apixaban (Eliquis) 2.5 mg PO BID [facility] Bisacodyl (Dulcolax Supp) 10 mg RECTAL DAILY PRN PRN Reason: SEVERE CONSITIPATION Chlorhexidine Gluconate (Hibiclens 4% Topical) 1 applicatio TOPICAL ONCE [facility] Stop: 07/17/18 05:59 Dexamethasone Sodium Phosphate (Decadron Inj) 10 mg IV.PUSH MASTER WELDER PRN PRN Reason: PRE-OP IN OR HOLDING Stop: 07/13/18 22:00 Last Admin: 07/13/18 06:34 Dose: 10 mg Diphenhydramine HCl (Benadryl) 25 mg PO Q6H PRN PRN Reason: ITCHING Hydrochlorothiazide (Hydrodiuril) 25 mg PO DAILY [facility] Last Admin: 07/13/18 10:42 Dose: Not Given Hydromorphone HCl (Dilaudid Pf Inj) 1 mg IV.PUSH Q3H PRN PRN Reason: BREAKTHROUGH PAIN Lactated Ringer's (Lr 1000 Ml Inj) 1,000 mls @ 30 mls/hr IV.SIG .Q24H [facility] Stop: 07/14/18 05:44 Last Infusion: 07/13/18 09:02 Dose: Infused Sodium Chloride (Ns Inj) 500 mls @ 30 mls/hr IV.SIG .Q10H [facility] Vancomycin HCl 1,000 mg/ (Sodium Chloride) 250 mls @ 250 mls/hr IV.SIG MASTER WELDER [facility] Stop: 07/16/18 05:48 Last Infusion: 07/13/18 09:54 Dose: Infused Cefazolin Sodium/Dextrose (Ancef 2 Gm Premix Inj) 2 gm in 50 mls @ 100 mls/hr IV.SIG MASTER WELDER [facility] Stop: 07/17/18 05:59 Last Admin: 07/13/18 07:06 Dose: 100 mls/hr Cefazolin Sodium 2,000 mg/ (Sodium Chloride) 100 mls @ 100 mls/hr IV.SIG Q6H [facility] Stop: 07/14/18 01:59 Last Infusion: 07/13/18 14:05 Dose: 100 mls/hr Lactated Ringer's (Lr 1000 Ml Inj) 1,000 mls @ 80 mls/hr IV.CONT .[id number] [facility] Last Admin: 07/13/18 09:10 Dose: 80 mls/hr Lactulose (Lactulose Liq) 30 ml PO DAILY PRN PRN Reason: SEVERE CONSITIPATION Lisinopril (Prinivil) 40 mg PO DAILY [facility] Last Admin: 07/13/18 10:43 Dose: Not Given Miscellaneous Information ([facility] [facility]) 1 each OTHER UNSCH PRN PRN Reason: SEE LABEL COMMENTS Stop: 07/14/18 09:06 Multivitamins/Minerals (Theragran-M) 1 tab PO BID [facility] Stop: 09/11/18 08:59 Last Admin: 07/13/18 10:43 Dose: Not Given Ondansetron HCl (Zofran Inj) 4 mg IV.PUSH Q6H PRN PRN Reason: NAUSEA OR VOMITING Povidone Iodine (Betadine 7.5% Scrub) 1 applicatio TOPICAL ONCE [facility] Stop: 07/17/18 05:59 Senna/Docusate Sodium (Tianna-Colace) 1 tab PO BID [facility] Last Admin: 07/13/18 10:43 Dose: Not Given Sennosides (Senokot) 17.2 mg PO BID PRN PRN Reason: Moderate Constipation Sodium Chloride (Ns Flush) 2 ml IV.FLUSH BID [facility] Last Admin: 07/13/18 10:43 Dose: Not Given Sodium Chloride (Ns Flush) 2 ml IV.FLUSH PRN PRN PRN Reason: FLUSH AFTER USING IV ACCESS Zolpidem Tartrate (Ambien) 5 mg PO HS PRN PRN Reason: INSOMNIA Allergies Allergy/AdvReac Type Severity Reaction Status Date / Time No Known Allergies Allergy Verified 07/13/18 06:26 Home Medications Medication Instructions Recorded Confirmed Type hydrocodone-acetaminophen 1 tab PO Q8H PRN 05/18/18 07/13/18 History lisinopril-hydrochlorothiazide 2 tab PO DAILY 05/18/18 07/13/18 History Exam Vital signs: Vital Signs 07/13/18 06:18 07/13/18 09:05 07/13/18 09:15 Temperature 98.4 F 97.8 F Pulse Rate 84 124 H 104 H Respiratory Rate 20 12 20 Blood Pressure 126/78 139/62 133/73 Pulse Oximetry 94 L 99 07/13/18 09:30 07/13/18 09:45 07/13/18 10:00 Temperature Pulse Rate 106 H 109 H 92 H Respiratory Rate 14 12 14 Blood Pressure 148/65 H 101/46 L 133/62 Pulse Oximetry 97 97 95 07/13/18 11:00 07/13/18 12:00 07/13/18 13:00 Temperature Pulse Rate 98 H 107 H Respiratory Rate 14 21 Blood Pressure 109/61 130/69 Pulse Oximetry 99 99 99 07/13/18 13:10 Temperature 98.5 F Pulse Rate 109 H Respiratory Rate 18 Blood Pressure 102/60 Pulse Oximetry 95 Intake & Output 07/12/18 07/13/18 07/13/18 18:59 06:59 18:59 Intake Total 1566.1 / 1566.1 Output Total 200 / 200 Balance 1366.1 / 1366.1 Weight 107.2 kg Intake: IV 1366.1 / 1366.1 LR 1000 mL Inj 1,000 ML @ 30 1000 / 1000 mls/hr IV.SIG .Q24H [facility] Rx#: [id number] Cyklokapron Inj 1,610 MG In NS 116.1 / 116.1 Inj 100 ML @ 200 mls/hr IV.SIG ONCE [facility] Rx#:[id number] Vancomycin Inj 1,000 MG In NS 250 / 250 Inj 250 ML @ 250 mls/hr IV.SIG MASTER WELDER [facility] Rx#:[id number] Anesthesia Amount 200 / 200 Output: Estimated Blood Loss 200 / 200 Other: Weight On Admission 107.2 kg Narrative: Gen: NAD Skin: no visible lesions; post-operative HEENT: EOM grossly I. MMM CV: Regular rate and rhythm; normal perfusion Resp: CTAB; normal rate Abd: Soft, nontender, normal BS Ext: RLE in extension. grossly normal motor function and range of motion otherwise. Neuro: grossly normal CN; grossly normal peripheral motor and sensory function Results - Labs Labs: Laboratory Results - last 24 hr 07/13/18 06:24 Blood Type O Positive Antibody Screen Negative - Imaging Impressions Hip X-Ray 07/13/18 06:44 CONCLUSION: Anatomic alignment. Eder Merrill MD FACR Assessment and Plan - Assessment (1) History of arthroplasty of right hip Code(s): Z98.890 - Other specified postprocedural states Status: Acute (2) S/P ablation of atrial flutter Code(s): Z98.890 - Other specified postprocedural states; Z86.79 - Personal history of other diseases of the circulatory system Status: Acute (3) Hypertension Code(s): I10 - Essential (primary) hypertension Status: Chronic - Plan Mr. Garces is a 52 yo M with: POD 0 Right hip total hemiarthroplasty Impression: Indicated by osteoarthritis. Per Dr. Chambers today; 200ml EBL; no complications -Continue routine post-op care -Continue pain control with [place] -Diet; stool softeners -Incentive spirometry -DVT PPX HTN Impression: Normotensive currently -Continue home Lisinopril/HCTZ Atrial flutter s/p Ablation Impression: HR ~100-110 post-operatively. Prior flutter 06/2018 -Will monitor on telemetry -Will consider EKG if persistent tachycardia History RO[place]ARIE -Will offer CPAP during hospitalization -DVT PPX >24hrs post-op per Dr. Chambers Code Status: Full code Discharge Planning: per Orthopedic surgery recommendations (3) Hypertension Qualifiers: Hypertension type: essential hypertension Qualified Code(s): I10 - Essential (primary) hypertension
[2018-07-13] MEDS ORDERED: HYDROmorphone PF Inj 2 MG/ML Vial IV.PUSH PRN (21:15)
[2018-07-14] MEDS: ceFAZolin Inj 2,000 MG in Sodium Chlor 0.9% Inj 100 ML IV.SIG SCH (00:57)
--- NOTE | 2018-07-14 08:10 | P.PNOP ---
Subjective Interval history: pain controlled. doing well. Physical Exam Vital signs: Vital Signs 07/13/18 09:05 07/13/18 09:15 07/13/18 09:30 Temperature 97.8 F Pulse Rate 124 H 104 H 106 H Respiratory Rate 12 20 14 Blood Pressure 139/62 133/73 148/65 H Pulse Oximetry 94 L 99 97 07/13/18 09:45 07/13/18 10:00 07/13/18 11:00 Temperature Pulse Rate 109 H 92 H 98 H Respiratory Rate 12 14 14 Blood Pressure 101/46 L 133/62 109/61 Pulse Oximetry 97 95 99 07/13/18 12:00 07/13/18 13:00 07/13/18 13:10 Temperature 98.5 F Pulse Rate 107 H 109 H Respiratory Rate 21 18 Blood Pressure 130/69 102/60 Pulse Oximetry 99 99 95 07/13/18 16:00 07/13/18 19:28 07/13/18 23:51 Temperature 98.0 F 98.7 F 98.5 F Pulse Rate 102 H 98 H 89 Respiratory Rate 18 18 18 Blood Pressure 104/61 104/65 102/59 L Pulse Oximetry 94 L 96 95 07/14/18 01:00 07/14/18 04:59 07/14/18 06:30 Temperature 98.3 F Pulse Rate 104 H Respiratory Rate 16 18 17 Blood Pressure 123/62 Pulse Oximetry 96 Intake & Output 07/13/18 07/14/18 07/14/18 18:59 06:59 18:59 Intake Total 1666.1 / 1666.1 1560 / 1560 Output Total 200 / 200 1000 / 1000 Balance 1466.1 / 1466.1 560 / 560 Weight 107.2 kg Intake: IV 1466.1 / 1466.1 1200 / 1200 LR 1000 mL Inj 1,000 ML @ 80 1000 / 1000 mls/hr IV.CONT .[id number] [facility] Rx# :[id number] LR 1000 mL Inj 1,000 ML @ 30 1000 / 1000 mls/hr IV.SIG .Q24H [facility] Rx#: [id number] Cyklokapron Inj 1,610 MG In NS 116.1 / 116.1 Inj 100 ML @ 200 mls/hr IV.SIG ONCE [facility] Rx#:[id number] Vancomycin Inj 1,000 MG In NS 250 / 250 Inj 250 ML @ 250 mls/hr IV.SIG NATURAL GAS INSPECTOR [facility] Rx#:[id number] Ancef Inj 2,000 MG In NS Inj 100 / 100 200 / 200 100 ML @ 100 mls/hr IV.SIG Q6H [facility] Rx#:[id number] Oral 360 / 360 Anesthesia Amount 200 / 200 Output: Urine 1000 / 1000 Estimated Blood Loss 200 / 200 Narrative: in bed, nad dressing c/d/i neg homans thigh soft nvi Results - Imaging Impressions Hip X-Ray 07/13/18 06:44 CONCLUSION: Anatomic alignment. Eder Merrill MD FACR Assessment and Plan - Ortho Post Op Day # 1 - Assessment and Plan s/p R TOMMY posterior approach wbat - post. hip precautions ok to maintain dressing unless saturated resume Eliquis d/c planning home with hhc and pt - cleared today if does well in pt f/up dr. camejo 2 weeks
[2018-07-14] MEDS: Multivitamin/Minerals Therapeutic Tablet PO SCH (08:13)
[2018-07-14] MEDS: Senna/Docusate Sodium 8.6/50 MG Tablet PO SCH (08:13)
[2018-07-14] MEDS: hydroCHLOROthiazide 25 MG Tablet PO SCH (08:13)
[2018-07-14] MEDS: Lisinopril 20 MG Tablet PO SCH (08:13)
--- NOTE | 2018-07-14 08:13 | P.DCO ---
- Physical Therapy Physical Therapy: Gait training, Safety evaluation Hip: Total hip, Protocol: Right, Posterior hip precautions Canvas Knee Splint: When in bed with 2 pillows between thighs Right Lower Extremity Weight Bearing: Weight bearing as tolerated - Nursing RN: 3 days/week x 2 weeks Nursing: Dressing changes Dressing changes: Daily dressing change - Certification Need for Home Health services: I have seen patient Jonatan Garces on 07/14/18. My clinical findings support the need for the requested home health care services because: Need for Home Health Services: Limited ability to care for self, High risk of falls Homebound Certification: I certify that my clinical findings support that this patient is homebound because: Homebound Certification: Post-op weakness, Unsteady gait/balance
--- NOTE | 2018-07-14 08:44 | P.PNIM ---
Subjective Interval history: 52-year-old male with past medical history of hypertension, hyperlipidemia, and A. flutter status post ablation admitted for R Osteoarthritis s/o right total hip replacement, postop day #1, patient doing well Physical Exam Vital signs: Vital Signs 07/13/18 09:05 07/13/18 09:15 07/13/18 09:30 Temperature 97.8 F Pulse Rate 124 H 104 H 106 H Respiratory Rate 12 20 14 Blood Pressure 139/62 133/73 148/65 H Pulse Oximetry 94 L 99 97 07/13/18 09:45 07/13/18 10:00 07/13/18 11:00 Temperature Pulse Rate 109 H 92 H 98 H Respiratory Rate 12 14 14 Blood Pressure 101/46 L 133/62 109/61 Pulse Oximetry 97 95 99 07/13/18 12:00 07/13/18 13:00 07/13/18 13:10 Temperature 98.5 F Pulse Rate 107 H 109 H Respiratory Rate 21 18 Blood Pressure 130/69 102/60 Pulse Oximetry 99 99 95 07/13/18 16:00 07/13/18 19:28 07/13/18 23:51 Temperature 98.0 F 98.7 F 98.5 F Pulse Rate 102 H 98 H 89 Respiratory Rate 18 18 18 Blood Pressure 104/61 104/65 102/59 L Pulse Oximetry 94 L 96 95 07/14/18 01:00 07/14/18 04:59 07/14/18 06:30 Temperature 98.3 F Pulse Rate 104 H Respiratory Rate 16 18 17 Blood Pressure 123/62 Pulse Oximetry 96 Intake & Output 07/13/18 07/14/18 07/14/18 18:59 06:59 18:59 Intake Total 1666.1 / 1666.1 1560 / 1560 Output Total 200 / 200 1000 / 1000 Balance 1466.1 / 1466.1 560 / 560 Weight 107.2 kg Intake: IV 1466.1 / 1466.1 1200 / 1200 LR 1000 mL Inj 1,000 ML @ 80 1000 / 1000 mls/hr IV.CONT .[id number] [facility] Rx# :[id number] LR 1000 mL Inj 1,000 ML @ 30 1000 / 1000 mls/hr IV.SIG .Q24H [facility] Rx#: [id number] Cyklokapron Inj 1,610 MG In NS 116.1 / 116.1 Inj 100 ML @ 200 mls/hr IV.SIG ONCE [facility] Rx#:[id number] Vancomycin Inj 1,000 MG In NS 250 / 250 Inj 250 ML @ 250 mls/hr IV.SIG CLUB LICENSEE [facility] Rx#:[id number] Ancef Inj 2,000 MG In NS Inj 100 / 100 200 / 200 100 ML @ 100 mls/hr IV.SIG Q6H [facility] Rx#:[id number] Oral 360 / 360 Anesthesia Amount 200 / 200 Output: Urine 1000 / 1000 Estimated Blood Loss 200 / 200 Narrative: GENERAL: male, resting comfortably, in no acute distress SKIN: Warm and dry. HEAD: Normocephalic. EYES: No scleral icterus. No injection or drainage. NECK: Supple, trachea midline. No JVD or lymphadenopathy. CARDIOVASCULAR: Regular rate and rhythm without murmurs, gallops, or rubs. RESPIRATORY: Breath sounds equal bilaterally. No accessory muscle use. GASTROINTESTINAL: Abdomen soft, non-tender, nondistended. MUSCULOSKELETAL: No cyanosis, or edema. R dressing in place. BACK: Nontender without obvious deformity. No CVA tenderness. Results - Imaging Impressions Hip X-Ray 07/13/18 06:44 CONCLUSION: Anatomic alignment. Eder Merrill MD FACR Assessment and Plan - Assessment (1) History of arthroplasty of right hip Code(s): Z98.890 - Other specified postprocedural states Status: Acute (2) S/P ablation of atrial flutter Code(s): Z98.890 - Other specified postprocedural states; Z86.79 - Personal history of other diseases of the circulatory system Status: Resolved (3) Hypertension Code(s): I10 - Essential (primary) hypertension Status: Chronic - Plan 1. R Hip Osteoarthritis: Status post right total hip replacement, postoperative day #1, patient stable for discharge per orthopedic recommendations. Will continue Eliquis for now, patient will also go home on [place] 10/325 mg p.o. every 4 hours as needed #50 as prescribed by [facility]. Patient will be discharged home with home health and PT, follow-up with Dr. Chambers in 2 weeks. 2. Hypertension: stable, continue lisinopril and hydrochlorothiazide. 3. Hyperlipidemia continue statin. 4. Atrial Flutter: Status post ablation, now in normal sinus rhythm with stable vital signs, follow-up with cardiology as an outpatient. 5. DISPO: Discharge home today pending PT, will go home with HH and PT, F?u with ortho in 2wks. Code Status: full Discussed Condition With: patient and Discharge Planning: home with home health and PT (3) Hypertension Qualifiers: Hypertension type: essential hypertension Qualified Code(s): I10 - Essential (primary) hypertension
[2018-07-14 09:56] LABS: Hematocrit 25.4 % (39.0-51.0); Hemoglobin 8.7 gm/dL (13.0-17.0)
[2018-07-14 10:21] LABS: Calcium 8.6 mg/dL (8.5-10.1); Carbon Dioxide 27.4 meq/L (21.0-32.0); Potassium 4.6 meq/L (3.5-5.1)
--- NOTE | 2018-07-15 14:55 | MD ---
cc: Don Chambers MD DATE OF DISCHARGE: 07/14/2018 ADMITTING DIAGNOSIS: Severe degenerative osteoarthritis, right hip. DISCHARGE DIAGNOSIS: Severe degenerative osteoarthritis, right hip. HISTORY OF PRESENT ILLNESS: Mr. Garces is a 52-year-old male who presented to the orthopedic clinic for evaluation by Dr. Don Chambers regarding severe progressive right hip pain. The patient states the pain has been present for many years, ever since he had an injury as a teenager to his right hip. Currently, the pain has been progressive and severe and inhibiting his ability to ambulate safely. He states his severe aching sensation is aggravated with weightbearing activities. He has no alleviating factors, although in the past he has tried medications, assistive devices, physical therapy and home exercise programs without relief of symptoms. He does have x-ray evidence of severe degenerative osteoarthritis of the right hip joint. While in the office, the patient was counseled on diagnosis and treatment options. Risks, benefits, and indications were all discussed. The patient did elect to proceed with surgical intervention to include a right total hip arthroplasty. DATE OF SURGERY: 07/13/2018, right total hip arthroplasty, posterior approach. POSTOP: After surgery, the patient was admitted to [facility] where he received appropriate medical management, pain control, DVT prophylaxis, as well as physical therapy. DISCHARGE: Once being discharged from the hospital, the patient is cleared to go home where he will receive home health, home physical therapy. He is in stable condition. He may weight bear as tolerated with posterior hip precautions. He has been instructed in appropriate wound care management. He has been provided prescriptions for pain control as well as DVT prophylaxis medication. He has also been provided a followup appointment approximately 2 weeks from date of surgery. The patient has asked appropriate questions, which have been answered. The patient has been discharged. Dictated by LAWRENCE Landeros MD MADISON Rogers/rodrick , 07:19 AM , 07:25 AM
== END 2018-07-14 15:37 | disposition home health service (06) ==
LOC: HSDI 05:27 → N06 13:13
PROVIDERS: ADMIT Orthopaedic Surgery Sports Medicine; ATTEND Orthopaedic Surgery Sports Medicine